=== PATIENT | male | born 1955 | race Caucasian/White ===

== ENCOUNTER → 2019-05-02 08:32 | Outpatient (BNVA) | payer MEDICARE, MEDICAID, SELFPAY | PROVIDERS: Family Provider Internal Medicine; PCP Internal Medicine; Visit Provider Internal Medicine | DX: E10.8 Type 1 diabetes mellitus with unspecified complications (principal) | CPT/HCPCS: 82947 ==

== ENCOUNTER → 2019-05-16 14:03 | Outpatient (BNVA) | payer MEDICARE, MEDICAID, SELFPAY | PROVIDERS: Family Provider Internal Medicine; PCP Internal Medicine; Visit Provider Internal Medicine | DX: E10.8 Type 1 diabetes mellitus with unspecified complications (principal) | CPT/HCPCS: 84681 ==

== ENCOUNTER 2019-07-08 10:51 | Outpatient (CLI) | payer MEDICARE, MEDICAID, SELFPAY ==
--- NOTE | 2019-07-08 10:56 | USCV_ITS ---
Heath Haney Age: 63 Gender: M : 1955 Exam Date: 07/08/2019 11:14 Ordering Phys: Ashley Mackay MD ([email or web address]) Technologist: ALINA BRANDT Exam Location: [facility] [place] Indication: CHECK LV FUNCTION BP: / HR: 77 Rhythm: Sinus Technical Quality: Good MEASUREMENTS (Male / Female) Normal Values 2D ECHO LV Diastolic Diameter PLAX 4.4 cm 4.2 - 5.9 / 3.9 - 5.3 cm LV Systolic Diameter PLAX 3.2 cm IVS Diastolic Thickness 1.1 cm 0.6 - 1.0 / 0.6 - 0.9 cm IVS Systolic Thickness 1.2 cm LVPW Diastolic Thickness 0.9 cm 0.6 - 1.0 / 0.6 - 0.9 cm LVPW Systolic Thickness 1.6 cm LVOT Diameter 2.0 cm LV Ejection Fraction 2D Teich 53.0 % LV Ejection Fraction MOD 2C 47.7 % LV Ejection Fraction 2C AL 49.0 % LA Diameter 2.0 cm LA Width 2.3 cm LA Height 2.7 cm RA Width 2.8 cm RA Height 2.7 cm M-MODE LV Diastolic Diameter MM 5.1 cm 4.2 - 5.9 / 3.9 - 5.3 cm LV Systolic Diameter MM 3.8 cm LV Ejection Fraction MM Teich 51.3 % IVS Diastolic Thickness MM 0.8 cm 0.6 - 1.0 / 0.6 - 0.9 cm IVS Systolic Thickness MM 0.9 cm LVPW Diastolic Thickness MM 1.0 cm 0.6 - 1.0 / 0.6 - 0.9 cm LVPW Systolic Thickness MM 1.6 cm Aortic Annulus Diameter 3.1 cm LA Ao Ratio MM 0.7 MV E Point Septal Separation 0.7 cm FINDINGS Left Ventricle Normal left ventricular cavity size. Increased left ventricular wall thickness. Low normal left ventricular systolic function. Left ventricular ejection fraction is estimated at 52 %. No regional wall motion abnormality. Right Ventricle Normal right ventricular size and systolic function. Right Atrium Normal right atrial size. Right atrial pressure estimated at 3 mmHg. Left Atrium Normal left atrial size. Mitral Valve Mildly thickened mitral valve. No mitral valve stenosis. Trace mitral valve regurgitation. Aortic Valve Mildly thickened trileaflet aortic valve. No aortic valve stenosis. No aortic valve regurgitation. Tricuspid Valve Structurally normal tricuspid valve. Mild tricuspid valve regurgitation. Pulmonic Valve Structurally normal pulmonic valve. No pulmonary valve stenosis. Trace pulmonary valve regurgitation. Pericardium No pericardial effusion. Aorta Normal-sized aortic root. CONCLUSIONS 1. Normal left ventricular cavity size. Low normal left ventricular systolic function. Left ventricular ejection fraction is estimated at 52 %. No regional wall motion abnormality. 2. Normal right ventricular size and systolic function. 3. Mild tricuspid valve regurgitation. 4. When compared to previous echocardiogram dated 03/31/2018, left ventricle systolic function has improved. Ashley Mackay MD (Electronically Signed) Final Date: 09 Jul 2019 17:02 S
== END 2019-07-08 10:52 | disposition home or self-care (01) ==
PROVIDERS: PCP Internal Medicine; Visit Provider Internal Medicine Cardiovascular Disease
DX: I42.8 Other cardiomyopathies (principal); I07.1 Rheumatic tricuspid insufficiency
CPT/HCPCS: 93308

== ENCOUNTER → 2019-07-25 08:58 | Outpatient (BNVA) | payer MEDICARE, MEDICAID, SELFPAY | PROVIDERS: PCP Internal Medicine | DX: Z94.0 Kidney transplant status (principal); Z94.83 Pancreas transplant status; Z79.899 Other long term (current) drug therapy; E78.5 Hyperlipidemia, unspecified; E10.8 Type 1 diabetes mellitus with unspecified complications; I10 Essential (primary) hypertension | CPT/HCPCS: 80053; 80061; 81003; 82306; 82310; 82570; 83036; 83735; 83970; 84100; 84156; 85025 ==

== ENCOUNTER → 2019-10-25 08:55 | Outpatient (BNVA) | payer MEDICARE, MEDICAID, SELFPAY | PROVIDERS: PCP Internal Medicine; Visit Provider Nurse Practitioner | DX: I10 Essential (primary) hypertension (principal); E78.5 Hyperlipidemia, unspecified; E10.8 Type 1 diabetes mellitus with unspecified complications; Z79.899 Other long term (current) drug therapy; Z94.0 Kidney transplant status; Z94.83 Pancreas transplant status | CPT/HCPCS: 81000; 82570; 84156; 87496; 87799 ==

== ENCOUNTER → 2019-10-26 08:36 | Outpatient (BNVA) | payer MEDICARE, MEDICAID, SELFPAY | PROVIDERS: PCP Internal Medicine; Visit Provider Nurse Practitioner | DX: E78.5 Hyperlipidemia, unspecified (principal); E10.8 Type 1 diabetes mellitus with unspecified complications; I10 Essential (primary) hypertension; Z79.899 Other long term (current) drug therapy; Z94.0 Kidney transplant status; Z94.83 Pancreas transplant status | CPT/HCPCS: 80053; 80195; 83735; 84100; 85025 ==

== ENCOUNTER → 2020-01-31 09:23 | Outpatient (BNVA) | payer MEDICARE, MEDICAID, SELFPAY | PROVIDERS: PCP Internal Medicine | DX: E11.9 Type 2 diabetes mellitus without complications (principal); E78.5 Hyperlipidemia, unspecified; I10 Essential (primary) hypertension; Z94.0 Kidney transplant status; Z79.899 Other long term (current) drug therapy | CPT/HCPCS: 80053; 80195; 81000; 82570; 83735; 84100; 84156; 85025; 87496; 87799 ==

== ENCOUNTER 2020-02-20 14:00 | Outpatient (CLI) | payer MEDICARE, MEDICAID, SELFPAY ==
--- NOTE | 2020-02-20 14:03 | XR_ITS ---
WS: [id number] Exam: XR hip LT 2-3V wo/w pel* [id number] Date/Time of Exam: 02/20/2020 2:03 PM Reason For Exam: M25.552 - Pain in left hip No acute fracture or dislocation. Moderately advanced degenerative narrowing of the joint compartment . Normal soft tissues. Vascular calcifications in the upper medial thigh. XR/XR hip LT 2-3V wo/w pel* [id number] IMPRESSION: 1. Moderately advanced DJD. No fracture or dislocation.
== END 2020-02-20 14:01 | disposition home or self-care (01) ==
PROVIDERS: PCP Internal Medicine; Visit Provider Internal Medicine
DX: M16.12 Unilateral primary osteoarthritis, left hip (principal)
CPT/HCPCS: 73502

== ENCOUNTER → 2020-03-16 08:29 | Outpatient (BNVA) | payer MEDICARE, MEDICAID, SELFPAY | PROVIDERS: PCP Internal Medicine; Referring Provider Internal Medicine; Visit Provider Anesthesiology Pain Medicine | DX: M16.12 Unilateral primary osteoarthritis, left hip (principal); M54.16 Radiculopathy, lumbar region; M47.816 Spondylosis without myelopathy or radiculopathy, lumbar region; M54.9 Dorsalgia, unspecified | CPT/HCPCS: 72120; 99205 ==

== ENCOUNTER 2020-03-16 10:00 | Outpatient (CLI) | payer MEDICARE, MEDICAID, SELFPAY ==
--- NOTE | 2020-03-16 10:15 | XR_ITS ---
WS: [id number] LUMBAR SPINE FLEXION AND EXTENSION TECHNIQUE: 3 views of the lumbar spine: Lateral neutral, flexion, and extension views. CLINICAL INFORMATION: M47.816 - Spondylosis without myelopathy or radiculopathy, lumbar region COMPARISON: None. FINDINGS: Normal lumbar alignment on the neutral view. No instability on the flexion and extension views. Disc space narrowing worse at L1-2. Moderate facet arthropathy L5-S1. Aortic calcification. Shaniqua arevalo XR/XR lumbar spine f/e only [id number] IMPRESSION: 1. No instability on flexion-extension. 2. Disc space narrowing worse at L1-2.
== END 2020-03-16 10:01 | disposition home or self-care (01) ==
LOC: RADWPI 10:05
PROVIDERS: PCP Internal Medicine; Visit Provider Anesthesiology Pain Medicine
DX: M47.816 Spondylosis without myelopathy or radiculopathy, lumbar region (principal)
CPT/HCPCS: 72120

== ENCOUNTER 2020-04-05 12:31 | Outpatient (CLI) | payer MEDICARE, MEDICAID, SELFPAY ==
--- NOTE | 2020-04-05 12:35 | CT_ITS ---
WS: [id number] CT LUMBAR SPINE, noncontrast. HISTORY: M54.16 - Radiculopathy, lumbar region TECHNIQUE: Contiguous 2.5 mm axial imaging are performed. Sagittal and coronal reformats are submitte d and reviewed. All CT scans at [facility] use at least one of these dose optimization te chniques: automated exposure control; mA and/or kV adjustment per patient size (includes targeted exa ms where dose is matched to clinical indication); or iterative reconstruction. IV contrast: None DLP: 2000.38 mGycm COMPARISON: None available. Posterior lumbar alignment is normal. Severe narrowing of the disc space at L1-2 with sclerosis and e rosions along the adjacent endplates of L1-2. No fractures. No pars defects. Moderate atherosclerosis aorta. L1-2: Mild annular disc bulging and osteophytic ridging. No fractures. Mild bilateral foraminal narro wing. L2-3: Marked annular disc bulging and mild osteophytic ridging. Mild deformity of the ventral thecal sac. There is very mild narrowing of the subarticular recesses and foramen. L3-4: Moderate annular disc bulging and osteophytic ridging. Mild facet and ligamentum flavum arthrit is. Very mild central and foraminal narrowing. L4-5: Moderate annular disc bulging and mild osteophytic ridging. Mild ligamentum flavum disease and facet arthritis. Slightly greater facet arthritis on the LEFT. Mild central stenosis. Moderate LEFT f oraminal stenosis with an associated LEFT foraminal disc protrusion and facet arthritis. LEFT foramin al disc protrusion is contacting the L4 nerve root. L5-S1: Mild broad-based disc bulging without stenosis. Moderate facet joint arthritis. Calcified plaque extends into the proximal renal arteries bilaterally . Severe bilateral renal atrophy. CT/CT lumbar spine wo con* [id number] IMPRESSION: 1. Moderate LEFT foraminal stenosis at L4-5. Stenosis due to combination of a LEFT foraminal disc protrusion with facet disease and ligamentum flavum disease . 2. Mild central stenosis at L4-5. 3. Mild central and foraminal narrowing at L3-4. 4. Severe degenerative disc disease and chronic endplate degeneration at L1-2. 5. Severe atherosclerosis aorta and iliac arteries.
== END 2020-04-05 12:32 | disposition home or self-care (01) ==
LOC: RADWPI 12:34
PROVIDERS: PCP Internal Medicine; Visit Provider Nurse Practitioner
DX: M54.16 Radiculopathy, lumbar region (principal); I70.0 Atherosclerosis of aorta; M51.36 Other intervertebral disc degeneration, lumbar region; M48.061 Spinal stenosis, lumbar region without neurogenic claudication; M51.26 Other intervertebral disc displacement, lumbar region
CPT/HCPCS: 72131

== ENCOUNTER → 2020-04-30 08:38 | Outpatient (BNVA) | payer MEDICARE, MEDICAID, SELFPAY | PROVIDERS: PCP Internal Medicine | DX: E10.8 Type 1 diabetes mellitus with unspecified complications (principal); E78.5 Hyperlipidemia, unspecified; I10 Essential (primary) hypertension; Z94.83 Pancreas transplant status; Z94.0 Kidney transplant status | CPT/HCPCS: 80053; 80195; 81000; 82570; 83735; 84100; 84156; 85025; 87496; 87799 ==

== ENCOUNTER → 2020-05-22 09:25 | Outpatient (BNVA) | payer MEDICARE, MEDICAID, SELFPAY | PROVIDERS: PCP Internal Medicine; Referring Provider Internal Medicine; Visit Provider Orthopaedic Surgery | DX: M25.552 Pain in left hip (principal) | CPT/HCPCS: 73502 ==

== ENCOUNTER → 2020-07-18 08:53 | Outpatient (BNVA) | payer MEDICARE, MEDICAID, SELFPAY | PROVIDERS: PCP Internal Medicine | DX: E78.5 Hyperlipidemia, unspecified (principal); I10 Essential (primary) hypertension; E10.8 Type 1 diabetes mellitus with unspecified complications; Z79.899 Other long term (current) drug therapy; Z94.0 Kidney transplant status | CPT/HCPCS: 80053; 80061; 80195; 81000; 82306; 82310; 82570; 83036; 83735; 83970; 84100; 84156; 85025; 87496; 87799 ==

== ENCOUNTER → 2020-08-06 09:50 | Outpatient (BNVA) | payer MEDICARE, MEDICAID, SELFPAY | PROVIDERS: PCP Internal Medicine | DX: Z94.0 Kidney transplant status (principal); Z94.83 Pancreas transplant status | CPT/HCPCS: 80195 ==

== ENCOUNTER → 2020-08-16 11:55 | Outpatient (BNVA) | payer MEDICARE, MEDICAID, SELFPAY | PROVIDERS: PCP Internal Medicine; Visit Provider Nurse Practitioner Family | DX: R50.9 Fever, unspecified (principal); Z11.52 Encounter for screening for COVID-19; T14.8XXA Other injury of unspecified body region, initial encounter; L08.9 Local infection of the skin and subcutaneous tissue, unspecified | CPT/HCPCS: 85007; 85025; 87635 ==

== ENCOUNTER → 2020-09-11 09:16 | Outpatient (BNVA) | payer MEDICARE, MEDICAID, SELFPAY | PROVIDERS: PCP Internal Medicine; Visit Provider Nurse Practitioner | DX: Z79.899 Other long term (current) drug therapy (principal); Z94.0 Kidney transplant status | CPT/HCPCS: 80195 ==

== ENCOUNTER 2020-09-24 12:52 | Outpatient (CLI) | payer MEDICARE, MEDICAID, SELFPAY ==
--- NOTE | 2020-09-24 13:04 | XR_ITS ---
WS: [id number] Chest 2 views, 09/24/2020 Clinical Data: W19.XXXA - Unspecified fall, initial encounter Comparison: Portable chest, 01/29/2016. Findings: No nodules, masses or effusions are seen. The heart is normal. The pulmonary vascularity is not increased. No pneumonia or pneumothorax is seen. The diaphragms are flattened. The aortic arch a nd descending aorta show tortuosity. There is deformity of the left upper ribs in the lateral border left scapula from old trauma. XR/XR chest 2V* [id number] Impression: Atherosclerosis and hyperinflation.
== END 2020-09-24 12:53 | disposition home or self-care (01) ==
PROVIDERS: PCP Internal Medicine; Visit Provider Internal Medicine
DX: I70.0 Atherosclerosis of aorta (principal); W19.XXXA Unspecified fall, initial encounter
CPT/HCPCS: 71046

== ENCOUNTER → 2021-02-04 09:54 | Outpatient (BNVA) | payer MEDICARE, MEDICAID, SELFPAY | PROVIDERS: PCP Internal Medicine | DX: E10.8 Type 1 diabetes mellitus with unspecified complications (principal); E78.5 Hyperlipidemia, unspecified; I10 Essential (primary) hypertension; Z94.0 Kidney transplant status; Z94.83 Pancreas transplant status; Z79.899 Other long term (current) drug therapy | CPT/HCPCS: 81000; 82570; 84156; 87799 ==

== ENCOUNTER → 2021-02-06 09:40 | Outpatient (BNVA) | payer MEDICARE, MEDICAID, SELFPAY | PROVIDERS: PCP Internal Medicine | DX: E10.8 Type 1 diabetes mellitus with unspecified complications (principal); E78.5 Hyperlipidemia, unspecified; I10 Essential (primary) hypertension; Z79.899 Other long term (current) drug therapy; Z94.0 Kidney transplant status; Z94.83 Pancreas transplant status | CPT/HCPCS: 80048; 80195; 83735; 84100; 85025; 87496 ==

== ENCOUNTER → 2021-07-11 10:52 | Outpatient (BNVA) | payer MEDICARE, MEDICAID, SELFPAY | PROVIDERS: PCP Internal Medicine; Visit Provider Internal Medicine Cardiovascular Disease | DX: I42.8 Other cardiomyopathies (principal); I73.9 Peripheral vascular disease, unspecified; I25.10 Atherosclerotic heart disease of native coronary artery without angina pectoris; I10 Essential (primary) hypertension; E10.8 Type 1 diabetes mellitus with unspecified complications; Z79.4 Long term (current) use of insulin | CPT/HCPCS: 99214 ==

== ENCOUNTER → 2021-07-25 08:40 | Outpatient (BNVA) | payer MEDICARE, MEDICAID, SELFPAY | PROVIDERS: PCP Internal Medicine | DX: E10.8 Type 1 diabetes mellitus with unspecified complications (principal); E78.5 Hyperlipidemia, unspecified; Z79.899 Other long term (current) drug therapy; Z94.83 Pancreas transplant status; Z94.0 Kidney transplant status | CPT/HCPCS: 80053; 80061; 80195; 81000; 82306; 82310; 82570; 83036; 83735; 83970; 84100; 84156; 85025; 87496; 87799 ==

== ENCOUNTER 2021-11-14 07:48 | Outpatient (CLI) | payer MEDICARE, MEDICAID, SELFPAY ==
--- NOTE | 2021-11-14 08:00 | MR_ITS ---
WS: [id number] MRI LUMBAR SPINE NONCONTRAST HISTORY: Chronic low back pain radiating to LEFT leg. COMPARISON: CT 04/05/2020 TECHNIQUE: Sagittal and axial multisequence imaging is submitted. Degenerative disc disease and disc protrusions and facet arthritis throughout the cervical, thoracic and lumbar spine. Cervical stenosis at C3-4 and C4-5. C6 anterolisthesis by 5 mm. Slight increase in lumbar lordosis. No significant anterolisthesis of the vertebral bodies. Chronic e ndplate changes with disc space narrowing and disc desiccation throughout the lumbar spine. Most sign ificant disc space narrowing is at L1-2. Hemangioma at L4. No fracture. Conus terminates normally at L1-2 disc level. L1-L2: Slight retrolisthesis of L1 with annular disc bulging and osteophytic ridging. Osteophytes enc hedrick into the subarticular recesses. Mild asymmetric disc bulging to the RIGHT. Mild bilateral subar ticular recess and RIGHT foraminal stenosis. L2-L3: Diffuse annular disc bulging. Diffuse osteophytic ridging. More focal bilateral foraminal disc protrusions with annular fissure in the LEFT protrusion. Mild central, bilateral subarticular recess and foraminal stenosis. L3-L4: Diffuse annular disc bulge with moderate ligamentum flavum and facet arthritis. LEFT foraminal disc protrusion with contact on the exiting LEFT L3 nerve root. Mild central stenosis. Moderate LEFT foraminal stenosis. L4-L5: Diffuse annular disc bulging and osteophytic ridging. Moderate ligamentum flavum hypertrophy a nd facet arthritis. Mild central and LEFT foraminal stenosis. There is very slight disc contact on th e exiting LEFT L4 nerve root. L5-S1: Mild disc bulging without stenosis. Marked atrophy of the kidneys bilaterally. MR/MR lumbar spine wo con* [id number] IMPRESSION: 1. Moderate spondylitic changes throughout the lumbar spine. 2. Moderate LEFT foraminal stenosis at L3-4 and L4-5 with disc contacting the exiting L3 and L4 nerve roots, respectively. 3. Mild central stenosis at L3-4 and L4-5. 4. Mild bilateral subarticular recess and RIGHT foraminal stenosis at L1-2. 5. Mild central, bilateral subarticular recess and foraminal stenosis at L2-3. 6. Severe chronic renal atrophy.
== END 2021-11-14 07:49 | disposition home or self-care (01) ==
PROVIDERS: PCP Internal Medicine; Visit Provider Internal Medicine
DX: M54.16 Radiculopathy, lumbar region (principal); M48.061 Spinal stenosis, lumbar region without neurogenic claudication; N26.1 Atrophy of kidney (terminal)
CPT/HCPCS: 72148

== ENCOUNTER → 2022-01-20 15:05 | Outpatient (BNVA) | payer MEDICARE, MEDICAID, SELFPAY | PROVIDERS: PCP Internal Medicine; Visit Provider Internal Medicine Cardiovascular Disease | DX: I42.8 Other cardiomyopathies (principal); I10 Essential (primary) hypertension; I73.9 Peripheral vascular disease, unspecified; I25.10 Atherosclerotic heart disease of native coronary artery without angina pectoris; E10.8 Type 1 diabetes mellitus with unspecified complications; Z79.4 Long term (current) use of insulin | CPT/HCPCS: 99214 ==

== ENCOUNTER 2022-02-21 09:24 | Observation (INO) | payer MEDICARE, MEDICAID, SELFPAY ==
[2022-02-21] VITALS (55 sets, daily range): BP systolic 97–130; BP diastolic 59–90; PULSE 78–148; RESP 14–39; TEMP 36.7–39.4; O2SAT 91–98; BMI 26.4; BMI 19.6
--- NOTE | 2022-02-21 09:25 | XR_ITS ---
WS: [id number] Portable AP upright chest, 02/21/2022 Clinical Data: dyspnea/cough Comparison: PA and lateral chest, 09/24/2020 Findings: There are bilateral patchy opacities distributed throughout the lungs which may represent p ulmonary edema. The heart is enlarged. No nodules, masses or effusions are seen. The heart is enlarge d No pneumothorax is seen. The aortic arch and descending thoracic aorta show tortuosity. There are m onitor leads on the chest wall. There is left upper rib deformity and deformity of the lateral left s capula from an old injury. XR/XR chest 1V portable [id number] Impression: 1. Bilateral diffuse patchy opacities and cardiomegaly suggestive of pulmonary edema. 2. Atherosclerosis
[2022-02-21 09:35] LABS: ABG PCO2 30.4 mmHg (35-45); ABG PH Result 7.45 (7.35-7.45); Alveolar-Arterial Oxygen Gradi 20.3 mmHg (5-10); Arterial Blood Gas Hematocrit 36.3 % (42-52); Base Excess ABG -2.3 mmol/L (-2.0-2.0); Blood Gas Allen Test Pos; Blood Gas Operator Identificat CAK; Blood Gas Sample Site Radial, left; Blood Gas Sample Type Arterial; Carboxyhemoglobin 1.4 %THgb (0.4-20.1); HCO3 ABG 20.9 mmol/L (22-26); HGB O2 Sat 91.3 % (95-100); Ionized Calcium Level - ABG 1.1 mmol/L (1.1-1.4); Methemoglobin 0.7 % (0.4-1.5); Oxygen Device NC; Oxygen Saturation ABG 93.3; PO2 ABG 61.8 mmHg (80.0-100.0); Potassium Level - ABG 4.4 mmol/L (3.5-5.0); Total Hemoglobin 11.8 g/dL (14-18)
[2022-02-21 09:35] LABS: Glucose Point of Care 286 mg/dL (70-110)
--- NOTE | 2022-02-21 09:39 | ECG_ITS ---
[facility] Test Date: 2022-02-21 Pat Name: Heath Haney Department: Room: Gender: Male Account Development Manager: : 1955 Requested By: Wallace Silvestre Order Number: [id number] Marisel MD: Ashley Mackay M.D. Measurements Intervals [place] Rate: 137 P: 52 KS: 161 QRS: -32 QRSD: 114 T: 64 QT: 363 QTc: 549 Interpretive Statements SINUS TACHYCARDIA LEFT AXIS DEVIATION [QRS AXIS < -30] SEPTAL MYOCARDIAL INFARCTION , OF INDETERMINATE AGE Compared to ECG 01/28/2016 10:26:06 Left-axis deviation now present Myocardial infarct finding still present Electronically Signed On 02-21-2022 20:34:31 PROCESSING CLERK by Ashley Mackay M.D. [email or web address]
[2022-02-21 09:42] LABS: Basophils # 0.1 10^3/uL (0.0-0.1); Basophils % 0.4 %; Hematocrit 39.1 % (42.0-52.0); Hemoglobin 12.3 g/dL (11.7-16.6); Lymphocytes # 0.3 10^3/uL (0.8-4.8); Lymphocytes % 2.1 %; Mean Corpuscular HGB Conc 31.5 g/dL (30.0-36.0); Mean Corpuscular Hemoglobin 28.1 pg (28.0-34.0); Mean Corpuscular Volume 89.3 fl (80-94); Mean Platelet Volume 10.5 fL (7.4-10.4); Monocytes # 0.8 10^3/uL (0.2-0.9); Monocytes % 5.2 %; Neutrophils # 14.48 10^3/uL (1.8-7.7); Neutrophils % 91.5 %; Nucleated Red Blood Cells % 0 %; Platelet Count 195 10^3/cmm (130-400); Red Blood Count 4.38 10^6/uL (4.1-5.3); Red Cell Distribution Width 13.4 % (12.1-15.1); White Blood Count 15.8 10^3/uL (4.0-10.0)
[2022-02-21] MEDS: piperacillin-tazobactam 3.375 GM in sodium chloride 0.9% (plus) 50 ML IV (09:52)
[2022-02-21] MEDS: levofloxacin-dextrose 5 % 750 MG/150 ML PREMIX 100 MG IV (09:54)
[2022-02-21 09:58] LABS: Lactic Sepsis W/Reflex 3.8 mmol/L (0.5-2.2)
[2022-02-21 09:59] LABS: Alanine Aminotransferase 22 U/L (0-41); Albumin Level 3.3 g/dL (3.5-5.2); Alkaline Phosphatase 100 U/L (40-130); Anion Gap 20.1 (5-19); Aspartate Amino Transferase 57 U/L (0-40); Blood Urea Nitrogen 46 mg/dL (8-23); Calcium 8.2 mg/dL (8.5-10.5); Carbon Dioxide 22 mmol/L (22-29); Chloride 100 mmol/L (98-107); Globulin 2.4 g/dL (1.3-4.6); Glomerular Filtration Rate 35.5 mL/min (90-130); Glucose 279 mg/dL (65-115); Lipase 6 U/L (13-60); Magnesium 1.7 mg/dL (1.7-2.3); Osmolality Calculated 306 mOsm/kg (285-295); Potassium 5.1 mmol/L (3.5-5.1); Sodium 137 mmol/L (136-145); Total Bilirubin 0.5 mg/dL (0.15-1.2); Total Protein 5.7 g/dL (6.6-8.7)
[2022-02-21 10:05] LABS: Creatine Phosphokinase 748 U/L (39-308)
[2022-02-21 10:06] LABS: Troponin(5th) Baseline 388 ng/L (0-15)
--- NOTE | 2022-02-21 10:06 | W.ED.CHESTPA ---
HPI - Chest Pain General: Chief Complaint: Chest Pain Stated Complaint: SOB/ CHEST PAIN Time Seen by Provider: 02/21/22 09:25 Source: patient Mode of arrival: EMS History of Present Illness: 66-year-old male presents emergency room via EMS. EMS was called because of shortness of breath with chest pain and rapid heart rate for the last 2 days worsening overnight. On EMSs arrival he was tachycardic in the 150s IV was placed he was given fluids and then given 6 mg and 12 mg of adenosine while in route. He had a slight pause but his rate remained in the 150s he was then given ketamine and cardioverted his heart rate remained in the 130s after this. On arrival here he is obtunded due to the ketamine but maintaining his airway usually does not use oxygen now requiring 4 L by nasal cannula. 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 Previous history of pancreas and kidney transplant. MD complaint: chest pain Pertinent past history: coronary artery disease Onset (ago): day(s) (2) Timing of current episode: constant Onset: during rest Pain location: left chest Relieving factors: nothing Exacerbating factors: nothing Associated symptoms: Deny abdominal pain, diaphoresis, dyspnea, fever(s), leg edema, nausea, palpitations, sense of impending doom, syncope or vomiting Treatment prior to arrival: none Review of Systems Const: Denies: fever(s), chills, fatigue, malaise or diaphoresis ENMT: Denies: throat pain, ear or mastoid pain, nasal discharge or nasal congestion Card: Reports: chest pain; Denies: palpitations, irregular heart rhythm, edema or syncope Resp: Denies: dyspnea GI: Denies: abdominal pain, nausea or vomiting : Denies: flank pain, dysuria, urinary frequency or urinary urgency Skin/Breast: Denies: rash or pruritus PFSH ED PFSH: Medical History (Updated 02/21/22 @ 13:02 by Wallace Hackett DO) Amputation toe Chronic pain syndrome Essential hypertension H/O lymph node cancer T-CELL Mild CAD Neuropathy NICM (nonischemic cardiomyopathy) Osteoporosis PVD (peripheral vascular disease) Type 1 diabetes mellitus with unspecified complications Surgical History (Updated 02/21/22 @ 13:02 by Wallace Hackett DO) H/O arterial bypass of lower limb H/O kidney transplant H/O pancreas transplant History of esophagogastroduodenoscopy (EGD) 05/29/2017 Hx of BKA Family History Other Heart disease Social History Smoking and tobacco status: never smoked Alcohol intake: current Alcohol intake frequency: holidays/special occasions only Household members: none Marital status: Single History of recent travel: No Physical Exam HENMT: COMMON NORMALS: normocephalic and atraumatic HEAD & SCALP: normocephalic and atraumatic Resp: COMMON NORMALS: normal respiratory effort, No retractions and No use of accessory muscles AUSCULTATION: rhonchi and wheezes Cardio: COMMON NORMALS: regular rhythm and No murmurs present (Cardio) RATE: tachycardic RHYTHM: regular rhythm GI: COMMON NORMALS: Soft to palpation and No hepatosplenomegaly present AUSCULTATION: Yes normoactive bowel sounds PALPATION: Yes Soft to palpation, No Tenderness to palpation present (GI), No Guarding due to palpation present (GI) and Yes No hepatosplenomegaly present Extremity: COMMON NORMALS: normal to inspection, capillary refill normal, no clubbing, cyanosis or edema, no calf tenderness and no pedal edema Skin: COMMON NORMALS: no rashes or lesions noted GENERAL SKIN EXAM: no rashes or lesions noted Course Vital Signs: Vital signs: Vital Signs Temperature 101.2 F H 02/21/22 09:27 Pulse Rate 129 H 02/21/22 11:45 Respiratory Rate 21 H 02/21/22 11:45 Blood Pressure 103/70 02/21/22 11:45 Pulse Oximetry 94 02/21/22 11:45 Oxygen Delivery Me thod 02/21/22 10:18 Oxygen Flow Rate 4 02/21/22 10:18 MDM - Chest Pain Medical Decision Making Bilateral basilar pneumonia. Patient is stabilizing he has slow to clear the ketamine so still is difficulty answering questions. Family at the bedside state has been sick for last few days progressively worsening and more shortness of breath. Discussed with hospitalist will admit have started Levaquin and Zosyn. Continue IV fluids for mild acute kidney injury. Nephrology consulted. Medical Records I reviewed the patient's medical records. Lab Data I reviewed the patient's lab results. 02/21/22 09:30 02/21/22 09:30 Radiology Impressions Chest X-Ray 02/21/22:25 Impression: 1. Bilateral diffuse patchy opacities and cardiomegaly suggestive of pulmonary edema. 2. Atherosclerosis Laboratory Results WBC 15.8 10^3/uL (4.0-10.0) H 02/21/22 09:30 RBC 4.38 10^6/uL (4.1-5.3) 02/21/22 09:30 Hgb 12.3 g/dL (11.7-16.6) 02/21/22 09:30 Hct 39.1 % (42.0-52.0) L 02/21/22 09:30 MCV 89.3 fl (80-94) 02/21/22 09:30 MCH 28.1 pg (28.0-34.0) 02/21/22:30 MCHC 31.5 g/dL (30.0-36.0) 02/21/22 09:30 RDW 13.4 % (12.1-15.1) 02/21/22 09:30 Plt Count 195 10^3/cmm (130-400) 02/21/22 09:30 MPV 10.5 fL (7.4-10.4) H 02/21/22 09:30 Neut % (Auto) 91.5 % 02/21/22 09:30 Lymph % (Auto) 2.1 % 02/21/22 09:30 [place] % (Auto) 5.2 % 02/21/22 09:30 Eos % (Auto) 0.0 % 02/21/22 09:30 Baso % (Auto) 0.4 % 02/21/22 09:30 Neut # (Auto) 14.48 10^3/uL (1.8-7.7) H 02/21/22 09:30 Lymph # (Auto) 0.3 10^3/uL (0.8-4.8) L 02/21/22 09:30 [place] # (Auto) 0.8 10^3/uL (0.2-0.9) 02/21/22 09:30 Eos # (Auto) 0.0 10^3/uL (0.0-0.8) 02/21/22 09:30 Baso # (Auto) 0.1 10^3/uL (0.0-0.1) 02/21/22 09:30 Nucleated RBC % (auto) 0 % 02/21/22 09:30 Nucleated RBCs # 0.0 /100WBC 02/21/22 09:30 Specimen Type Arterial 02/21/22 09:24 Sample Site Radial, left 02/21/22 09:24 ABG pH 7.45 (7.35-7.45) 02/21/22 09:24 ABG pCO2 30.4 mmHg (35-45) L 02/21/22 09:24 ABG pO2 61.8 mmHg (80.0-100.0) L 02/21/22 09:24 ABG HCO3 20.9 mmol/L (22-26) L 02/21/22 09:24 ABG O2 Saturation 93.3 02/21/22 09:24 ABG Base Excess -2.3 mmol/L (-2.0-2.0) L 02/21/22 09:24 Petey Test Pos 02/21/22 09:24 A-a O2 Gradient 20.3 mmHg (5-10) H 02/21/22 09:24 Hematocrit 36.3 % (42-52) L 02/21/22 09:24 Hgb O2 Saturation 91.3 % (95-100) L 02/21/22 09:24 Carboxyhemoglobin 1.4 %THgb (0.4-20.1) 02/21/22 09:24 Methemoglobin 0.7 % (0.4-1.5) 02/21/22 09:24 Total Hemoglobin 11.8 g/dL (14-18) L 02/21/22 09:24 Sodium 137.0 mmol/L (131-143) 02/21/22 09:24 Potassium 4.4 mmol/L (3.5-5.0) 02/21/22 09:24 Glucose 284.0 mg/dL (70-115) H 02/21/22 09:24 Ionized Calcium 1.1 mmol/L (1.1-1.4) 02/21/22 09:24 O2 Delivery Device Nc 02/21/22 09:24 O2 Liters/Min 4.0 % 12/30/22 09:24 FiO2 36.0 % 02/21/22 09:24 Floor Installation Mechanic ID Cak 02/21/22 09:24 Sodium 137 mmol/L (136-145) 02/21/22 09:30 Potassium 5.1 mmol/L (3.5-5.1) 02/21/22 09:30 Chloride 100 mmol/L (98-107) 02/21/22 09:30 Carbon Dioxide 22 mmol/L (22-29) 02/21/22 09:30 Anion Gap 20.1 (5-19) H 02/21/22 09:30 BUN 46 mg/dL (8-23) H 02/21/22 09:30 Creatinine 1.9 mg/dL (0.7-1.2) H 02/21/22 09:30 GFR Calculation 35.5 mL/min (90-130) L 02/21/22 09:30 Glucose 279 mg/dL (65-115) H 02/21/22 09:30 POC Glucose 286 mg/dL (70-110) H 02/21/22 09:32 Calculated Osmolality 306 mOsm/kg (285-295) H 02/21/22 09:30 Lactic Acid 3.8 mmol/L (0.5-2.2) H 02/21/22 09:30 Calcium 8.2 mg/dL (8.5-10.5) L 02/21/22 09:30 Magnesium 1.7 mg/dL (1.7-2.3) 02/21/22 09:30 Total Bilirubin 0.5 mg/dL (0.15-1.2) 02/21/22 09:30 AST 57 U/L (0-40) H 02/21/22 09:30 ALT 22 U/L (0-41) 02/21/22 09:30 Alkaline Phosphatase 100 U/L (40-130) 02/21/22 09:30 Creatine Kinase 748 U/L (39-308) H* 02/21/22 09:30 CK-MB (CK-2) 14.0 ng/mL (0-10.4) H 02/21/22 09:30 CK-MB (CK-2) Rel Index 1.8 % (0.0-5.3) 02/21/22 09:30 Troponin T Baseline 388 ng/L (0-15) H* 02/21/22 09:30 Total Protein 5.7 g/dL (6.6-8.7) L 02/21/22 09:30 Albumin 3.3 g/dL (3.5-5.2) L 02/21/22 09:30 Globulin 2.4 g/dL (1.3-4.6) 02/21/22 09:30 Lipase 6 U/L (13-60) L 02/21/22 09:30 Influenza Type A Ag negative (Negative) 02/21/22 10:20 Influenza Type B Ag negative (Negative) 02/21/22 10:20 Discharge Plan Discharge Patient Disposition: Admitted As Inpatient Admit Provider: Jazmin Hodges Clinical Impression: Pneumonia, Acute kidney injury, Renal transplant, status post, Status post pancreas transplantation Condition: Stable Coding Level of Care Code ED Grounds Restoration Specialist for g Fwd Exam Detailed
--- NOTE | 2022-02-21 10:07 | PC.NURSE ---
NOTIFIED DR. SORENSON OF [place] OF 388 AND CK OF 748 VERBALIZED UNDERSTANDING NO FURTHER ORDERS.
[2022-02-21 10:50] LABS: Influenza A by IFA negative (Negative); Influenza B by IFA negative (Negative)
[2022-02-21 10:52] LABS: CKMB Relative Index 1.8 % (0.0-5.3)
[2022-02-21 11:21] LABS: Reflex Lactate Order REFLEX LACTIC ORDERD
--- NOTE | 2022-02-21 13:04 | PM.HP ---
Providers/Chief Complaint Admitting Physician: Jazmin Hodges MD Primary Care Provider: Atilio Mcgraw MD Chief Complaint: SOB/ CHEST PAIN History of Present Illness Heath Haney is a 66 year old male Medications/Allergies Home Medications Medication Instructions Recorded Confirmed Last Taken Type flash glucose sensor (FreeStyle #2 ea 04/28/19 02/21/22 Unknown Rx Girish 14 Day Sensor kit) Replace Liners #1 ea 05/13/19 02/21/22 Unknown Rx prostehetic insert for rt shoe #1 ea 09/06/19 02/21/22 Unknown Rx below knee prosthesis #1 ea 10/10/19 02/21/22 Unknown Rx cholecalciferol (vitamin D3) 50 50 mcg PO DAILY 05/22/20 02/21/22 Unknown History mcg (2,000 unit) capsule (Vitamin D3) albuterol sulfate 90 mcg/actuation 2 puff inhalation Q6H PRN 12/04/20 02/21/22 Unknown Rx aerosol inhaler (ProAir HFA) shortness of breath or wheezing #18 grams rollinator #1 ea 01/28/21 02/21/22 Unknown Rx insulin lispro 100 unit/mL See Rx Instructions .Route 02/07/21 02/21/22 Unknown Rx subcutaneous pen (Humalog KwikPen .COMPLEX #15 mL (U-100) Insulin) spironolactone 25 mg tablet 12.5 mg PO DAILY #45 tabs 04/26/21 02/21/22 Unknown Rx calcium carbonate 600 mg calcium 600 mg PO BID 07/11/21 02/21/22 Unknown History (1,500 mg) tablet (Calcium) coenzyme Q10 100 mg capsule (Co 100 mg PO DAILY 07/11/21 02/21/22 Unknown History Q-10) furosemide 20 mg tablet 10 mg PO DAILY PRN Edema 07/11/21 02/21/22 Unknown History prednisone 5 mg tablet 5 mg PO DAILY 07/11/21 02/21/22 Unknown History sirolimus 2 mg tablet (Rapamune) 4 mg PO DAILY 07/11/21 02/21/22 02/21/22 History diclofenac sodium 1 % topical gel See Rx Instructions .Route 08/13/21 02/21/22 Unknown Rx .COMPLEX #100 grams tadalafil 20 mg tablet (Cialis) 20 mg PO DAILY PRN sexual activity 09/23/21 02/21/22 Unknown Rx #30 tabs mupirocin 2 % topical ointment 1 applic topical DAILY #30 grams 10/23/21 02/21/22 Unknown Rx duloxetine 60 mg capsule,delayed 60 mg PO DAILY #90 caps 11/27/21 02/21/22 Unknown Rx release tizanidine 4 mg tablet 4 mg PO Q6H PRN muscle spasticity 12/31/21 02/21/22 Unknown Rx 30 days #30 tabs oxycodone 10 mg tablet 10 mg PO TID PRN pain 30 days #90 01/01/22 02/21/22 Unknown Rx tabs aspirin 81 mg tablet,delayed 81 mg PO .MWF 01/20/22 02/21/22 Unknown History release (Adult Low Dose Aspirin) diazepam 5 mg tablet 5 mg PO DAILY PRN Anxiety 01/20/22 02/21/22 Unknown History lidocaine 5 % topical patch 1 patch topical DAILY PRN Pain 01/20/22 02/21/22 Unknown History lisinopril 5 mg tablet 5 mg PO DAILY 01/20/22 02/21/22 Unknown History methylsulfonylmethane 1,000 mg 1,000 mg PO BID 01/20/22 02/21/22 Unknown History tablet (MSM) prenat.vits,walter,fbj-owgk-ldygr 1 tab PO DAILY 01/20/22 02/21/22 Unknown History Lactobacillus acidophilus and 1 cap PO DAILY 02/21/22 02/21/22 Unknown History rhamnosus 15 billion cell capsule (Probiotic) insulin detemir U-100 100 unit/mL 11 - 12 unit SUBCUT BID 02/21/22 02/21/22 Unknown History (3 mL) subcutaneous pen vitamin E 268 mg (400 unit) capsule 268 mg PO DAILY 02/21/22 02/21/22 Unknown History Allergies Allergy/AdvReac Type Severity Reaction Status Date / Time gabapentin Allergy Severe severe Verified 02/21/22 10:11 depression PFSH Acute PFSH: Medical History Amputation toe Chronic pain syndrome Essential hypertension H/O lymph node cancer T-CELL Mild CAD Neuropathy NICM (nonischemic cardiomyopathy) Osteoporosis PVD (peripheral vascular disease) Type 1 diabetes mellitus with unspecified complications Surgical History H/O arterial bypass of lower limb H/O kidney transplant H/O pancreas transplant History of esophagogastroduodenoscopy (EGD) 05/29/2017 Hx of BKA Family History Other Heart disease Social History Smoking and tobacco status: never smoked Alcohol intake: current Alcohol intake frequency: holidays/special occasions only Household members: none Marital status: Single History of recent travel: No Vitals/I&O/Wt Last Vital Signs Temp 101.2 F H 02/21/22 09:27 Pulse 129 H 02/21/22 11:45 Resp 21 H 02/21/22 11:45 BP 103/70 02/21/22 11:45 Pulse Ox 94 02/21/22 11:45 O2 Del Method 02/21/22 10:18 O2 Flow Rate 4 02/21/22 10:18 02/20/22 02/21/22 02/21/22 22:59 06:59 14:59 Intake Total 2785.49 / 2785.49 Balance 2785.49 / 2785.49 Weight last 48 hrs Weight 86.183 kg Data 02/21/22 09:30 02/21/22 09:30 Micro: Microbiology 02/21/22 09:44 Blood Culture - Preliminary Blood SPECIMEN COLLECTED 02/21/22 09:30 Blood Culture - Preliminary Blood SPECIMEN COLLECTED Coding Level of Care Code Acute Junior Software Developer for Jose Manuel Kuo
--- NOTE | 2022-02-21 13:30 | PC.NURSE ---
REPORT CALLED TO ESTHER CHEN IN ICU.
--- NOTE | 2022-02-21 13:40 | CT_ITS ---
WS: [id number] CT CHEST, ABDOMEN, AND PELVIS TECHNIQUE: Noncontrast CT of the chest, abdomen, and pelvis with coronal and sagittal reformatted beto ges. CLINICAL INFORMATION: sepsis COMPARISON: July 25, 2009 DLP: 595.[address] scans at [facility] use at least one of these dose optimization techniques: automated e xposure control; mA and/or kV adjustment per patient size (includes targeted exams where dose is matc hed to clinical indication); or iterative reconstruction. CT CHEST: Cardiomegaly. Coronary calcification. Patchy infiltrates within both lower lobes with compressive ate lectasis. Small bilateral pleural effusions. Additional patchy infiltrate infiltrates in the perihila r regions bilaterally. Recommend correlation for pneumonia. Normal caliber thoracic aorta. Aortic calcification. Coronary calcification. Calcified RIGHT hilar ly mph nodes. No axillary lymphadenopathy. CT ABDOMEN AND PELVIS: Noncontrast liver is normal. Fluid distended hydropic gallbladder. Dilated common bile duct with mild intrahepatic biliary ductal dilatation. Common bile duct measures 12 mm. This can be followed up wit h ultrasound or MRCP. Splenic artery calcification. Fatty atrophy of the pancreas. Aortic calcification. Normal caliber abd ominal aorta. Fluid distended bladder. LEFT lower quadrant renal transplant. Mild sigmoid constipation. Bilateral renal atrophy. No hydronephrosis. Adrenal glands are normal. Disc space narrowing worse at L1-L2. Postoperative changes intramedullary cheryl and screw fixation RIGH T hip. [place] [id number] IMPRESSION: 1. Bilateral patchy infiltrates within the perihilar regions and both lower lo bes with compressive atelectasis in the lung bases. Small bilateral pleural eff usions. Findings compatible with pneumonia. 2. Hydropic fluid distended gallbladder. Mild intrahepatic biliary dilatation with dilatation of the common bile duct. This can be followed up with MRCP or u ltrasound. No visualized cholelithiasis. 3. Atrophic kidneys bilaterally. 4. Markedly distended urinary bladder. 5. LEFT pelvic kidney transplant. 6. No other acute findings in the abdomen or pelvis.
[2022-02-21 13:48] LABS: Lactic Acid level (Lactate) 2.9 mmol/L (0.5-2.2)
[2022-02-21 13:52] LABS: Troponin 5 2HR 467.2 ng/L (0-15); Troponin 5 2HR Delta 79.2 ABS# (0-10)
[2022-02-21] MEDS: sodium chloride 0.9% 1,000 ML 125 ML IV (14:39)
[2022-02-21 14:47] LABS: Procalcitonin 78.11 ng/mL (0-0.5); Thyroid Stimulating Hormone 3.67 uIU/mL (0.27-4.20)
[2022-02-21 14:53] LABS: D Dimer 8.13 ug/mIFEU (0-0.59)
--- NOTE | 2022-02-21 15:42 | PC.NURSE ---
Discussed with Dr Hodges about patient's anticoagulants and was told to hold due to patient's bloodtinged sputum.
[2022-02-21 15:51] LABS: Estmated Average Glucose 166; Hemoglobin A1C 7.4 % (4.0-6.0)
[2022-02-21] MEDS: clopidogrel 300 mg Tablet PO (16:19)
[2022-02-21] MEDS: heparin drip 25,000 UNIT/500 ML PREMIX 17 UNIT IV (16:53)
[2022-02-21] MEDS: acetaminophen 500 mg Tablet PO (16:59)
[2022-02-21 17:08] LABS: Glucose Point of Care 377 mg/dL (70-110)
[2022-02-21] MEDS: insulin lispro 100 unit/1 mL SUBCUT (17:17)
[2022-02-21 18:17] LABS: Adenovirus Not Detected (NOT DETECT); Chlamydia Pneumoniae Not Detected (NOT DETECT); Coronavirus 229E,HKU1,NL63,OC4 Not Detected (NOT DETECT); Human Metapneumovirus Not Detected (NOT DETECT); Human Rhinovirus/Enterovirus Not Detected (NOT DETECT); Influenza A Not Detected (NOT DETECT); Influenza A H1 Not Detected (NOT DETECT); Influenza A H1-2009 Not Detected (NOT DETECT); Influenza A H3 Not Detected (NOT DETECT); Influenza B Not Detected (NOT DETECT); Mycoplasma Pneumoniae Not Detected (NOT DETECT); Parainfluenza Virus Type 1 Not Detected (NOT DETECT); Parainfluenza Virus Type 2 Not Detected (NOT DETECT); Parainfluenza Virus Type 3 Not Detected (NOT DETECT); Parainfluenza Virus Type 4 Not Detected (NOT DETECT); Respiratory Syncytial Virus A Not Detected (NOT DETECT); Respiratory Syncytial Virus B Not Detected (NOT DETECT); SARS-COV-2 Not Detected (NOT DETECT)
[2022-02-21 18:23] LABS: Lactate (Lactic Acid level) 2.3 mmol/L (0.5-2.2)
--- NOTE | 2022-02-21 18:24 | PM.HP ---
Providers/Chief Complaint Primary Care Provider: Atilio Mcgraw MD Chief Complaint: SOB/ CHEST PAIN History of Present Illness Heath Haney is a 66 year old male who has history of pancreatic transplant, renal transplant, on immunosuppressants, bilateral lower extremity amputation, COPD, nonoxygen dependent, presented to the hospital with chief complaint of shortness of breath and confusion. Patient is stating that his symptoms started last night with shortness of breath. He could not sleep all night he is endorsing subjective fevers. He has not noticed any nausea, vomiting but today in the morning he was very confused that prompted his visit in the ER. hx of reduced ejection fraction HF, cardiomyopathy he was recommended AICD by Dr. 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 As per the EMT he was given adenosine for narrow complex tachycardia/SVT, he was also cardioverted x1, patient has not experienced chest pain at all Review of Systems Const: Reports: fever(s), chills and body aches Eyes: Denies: change in vision ENMT: Denies: throat pain Card: Denies: chest pain Resp: Reports: dyspnea GI: Denies: abdominal pain : Denies: flank pain Musc: Denies: neck pain Skin/Breast: Denies: rash Neuro: Denies: headache(s) Psych: Reports: anxiety Endo: Denies: polyuria Brad/Lymph: Denies: easy bruising All/Imm: Reports: urticaria Medications/Allergies Home Medications Medication Instructions Recorded Confirmed Last Taken Type flash glucose sensor (FreeStyle #2 ea 04/28/19 02/21/22 Unknown Rx Girish 14 Day Sensor kit) Replace Liners #1 ea 05/13/19 02/21/22 Unknown Rx prostehetic insert for rt shoe #1 ea 09/06/19 02/21/22 Unknown Rx below knee prosthesis #1 ea 10/10/19 02/21/22 Unknown Rx cholecalciferol (vitamin D3) 50 50 mcg PO DAILY 05/22/20 02/21/22 Unknown History mcg (2,000 unit) capsule (Vitamin D3) albuterol sulfate 90 mcg/actuation 2 puff inhalation Q6H PRN 12/04/20 02/21/22 Unknown Rx aerosol inhaler (ProAir HFA) shortness of breath or wheezing #18 grams rollinator #1 ea 01/28/21 02/21/22 Unknown Rx insulin lispro 100 unit/mL See Rx Instructions .Route 02/07/21 02/21/22 Unknown Rx subcutaneous pen (Humalog KwikPen .COMPLEX #15 mL (U-100) Insulin) spironolactone 25 mg tablet 12.5 mg PO DAILY #45 tabs 04/26/21 02/21/22 Unknown Rx calcium carbonate 600 mg calcium 600 mg PO BID 07/11/21 02/21/22 Unknown History (1,500 mg) tablet (Calcium) coenzyme Q10 100 mg capsule (Co 100 mg PO DAILY 07/11/21 02/21/22 Unknown History Q-10) furosemide 20 mg tablet 10 mg PO DAILY PRN Edema 07/11/21 02/21/22 Unknown History prednisone 5 mg tablet 5 mg PO DAILY 07/11/21 02/21/22 Unknown History sirolimus 2 mg tablet (Rapamune) 4 mg PO DAILY 07/11/21 02/21/22 02/21/22 History diclofenac sodium 1 % topical gel See Rx Instructions .Route 08/13/21 02/21/22 Unknown Rx .COMPLEX #100 grams tadalafil 20 mg tablet (Cialis) 20 mg PO DAILY PRN sexual activity 09/23/21 02/21/22 Unknown Rx #30 tabs mupirocin 2 % topical ointment 1 applic topical DAILY #30 grams 10/23/21 02/21/22 Unknown Rx duloxetine 60 mg capsule,delayed 60 mg PO DAILY #90 caps 11/27/21 02/21/22 Unknown Rx release tizanidine 4 mg tablet 4 mg PO Q6H PRN muscle spasticity 12/31/21 02/21/22 Unknown Rx 30 days #30 tabs oxycodone 10 mg tablet 10 mg PO TID PRN pain 30 days #90 01/01/22 02/21/22 Unknown Rx tabs aspirin 81 mg tablet,delayed 81 mg PO .MWF 01/20/22 02/21/22 Unknown History release (Adult Low Dose Aspirin) diazepam 5 mg tablet 5 mg PO DAILY PRN Anxiety 01/20/22 02/21/22 Unknown History lidocaine 5 % topical patch 1 patch topical DAILY PRN Pain 01/20/22 02/21/22 Unknown History lisinopril 5 mg tablet 5 mg PO DAILY 01/20/22 02/21/22 Unknown History methylsulfonylmethane 1,000 mg 1,000 mg PO BID 01/20/22 02/21/22 Unknown History tablet (MSM) prenat.vits,walter,kzp-xsmf-ucywa 1 tab PO DAILY 01/20/22 02/21/22 Unknown History Lactobacillus acidophilus and 1 cap PO DAILY 02/21/22 02/21/22 Unknown History rhamnosus 15 billion cell capsule (Probiotic) insulin detemir U-100 100 unit/mL 11 - 12 unit SUBCUT BID 02/21/22 02/21/22 Unknown History (3 mL) subcutaneous pen vitamin E 268 mg (400 unit) capsule 268 mg PO DAILY 02/21/22 02/21/22 Unknown History Allergies Allergy/AdvReac Type Severity Reaction Status Date / Time gabapentin Allergy Severe severe Verified 02/21/22 10:11 depression PFSH Acute PFSH: Medical History (Updated 02/21/22 @ 18:54 by Jazmin Hodges MD) Amputation toe Chronic pain syndrome Erectile dysfunction Essential hypertension H/O lymph node cancer T-CELL Immunosuppression Mild CAD Neuropathy NICM (nonischemic cardiomyopathy) Osteoporosis PVD (peripheral vascular disease) Type 1 diabetes mellitus with unspecified complications Vitamin D insufficiency Surgical History H/O arterial bypass of lower limb H/O kidney transplant H/O pancreas transplant History of esophagogastroduodenoscopy (EGD) 05/29/2017 Hx of BKA Family History Other Heart disease Social History Smoking and tobacco status: never smoked Alcohol intake: current Alcohol intake frequency: holidays/special occasions only Household members: none Marital status: Single History of recent travel: No Vitals/I&O/Wt Last Vital Signs Temp 99.8 F H 02/21/22 18:13 Pulse 120 H 02/21/22 18:19 Resp 16 02/21/22 18:19 BP 104/59 02/21/22 18:19 Pulse Ox 96 02/21/22 18:19 O2 Del Method 02/21/22 18:19 O2 Flow Rate 4 02/21/22 18:19 02/21/22 02/21/22 02/21/22 06:59 14:59 22:59 Intake Total 2785.49 / 2785.49 Balance 2785.49 / 2785.49 Weight last 48 hrs Weight 58.967 kg Weight 86.183 kg Physical Exam Narrative: Patient is laying supine Currently on 4 L nasal cannula No active chest pain Short attention span however able to answer simple question Nonfocal neuro exam S1, S2 sinus tachycardia Abdomen soft Bilateral lower extremity amputation No active sign of cellulitis Family at the bedside Mild rhonchi noted on lung auscultation Awake and alert GCS 15 Data 02/21/22 09:30 02/21/22 09:30 Micro: Microbiology 02/21/22 09:44 Blood Culture - Preliminary Blood SPECIMEN COLLECTED 02/21/22 09:30 Blood Culture - Preliminary Blood SPECIMEN COLLECTED A&P Assessment and plan (1) Acute kidney injury: (2) Renal transplant, status post: (3) Status post pancreas transplantation: (4) Pneumonia: (5) Type 1 diabetes mellitus with unspecified complications: (6) Mild CAD: (7) NICM (nonischemic cardiomyopathy): (8) Hypoxia: Plan Acute hypoxia related to pneumonia Check COVID PCR Rule out PE patient has extremely high D-dimer Start him on heparin drip Start broad-spectrum antibiotics Check urine antigen, MRSA PCR continue DuoNeb and steroids NSTEMI Start ACS protocol with heparin no active chest pain, EKG showing sinus tachycardia heart rate in 130s UTE history of kidney transplant, hold immunosuppressants, check serologies level, continue steroids Nephro consulted Patient clinically is dehydrated Sepsis related to pneumonia Given 3 L in the ER Will follow up with blood cultures Lactic acidemia Sepsis criteria met with leukocytosis high lactic acid, tachycardia, fever Responding to IV fluids Sinus tachycardia with underlying reduced ejection fraction heart failure/cardiomyopathy Nonischemic Patient was recommended AICD by Dr. Vance Full code Cardiac diet Admit to ICU Awaiting transfer to tertiary center, he has been put on waiting list to 3-4 different hospitals DVT prophylaxis covered with heparin GGT Attestations Medical Necessity Statement*: Anticipating more than 2 midnights Time Spent in Patient Care: 40mins Coding Level of Care Code Acute Dye Colorist Dyer for Jose Manuel Fwd Diagnoses Acute kidney injury N17.9 Renal transplant, status post Z94.0 Status post pancreas transplantation Z94.83 Pneumonia J18.9 Type 1 diabetes mellitus with unspecified complications E10.8 Mild CAD I25.10 NICM (nonischemic cardiomyopathy) I42.8 Hypoxia R09.02
[2022-02-21 19:06] LABS: Troponin 5 6HR 507.6 ng/L (0-15); Troponin 5 6HR Delta 119.6 ng/L (0-12)
[2022-02-21 19:24] LABS: Urine Color Yellow (Yellow)
[2022-02-21 19:25] LABS: Add Urine Microscopic? YES; Bilirubin Urine Neg (Negative); Blood Urine 2+ (Negative); Glucose Urine UA 2+ (Normal); Ketones Urine 1+ (Negative); Leukocyte Esterase Urine Negative (Negative); Nitrate Urine Negative (Negative); Protein Urine 1+ (Negative); Urine Appearance Hazy (CLEAR); Urobilinogen Urine Norm (Negative); pH Urine 5 (5-7)
[2022-02-21 19:36] LABS: Bacteria Urine 1+ /hpf; Squamous Epithelial Cell Urine 0-4 /hpf (0-5); WBC Urine 0-4 /hpf (0-5)
[2022-02-21 19:47] LABS: RBC Urine 0-4 /hpf (0-2)
--- NOTE | 2022-02-21 20:09 | PC.NURSE ---
Critical lab called to Dr Cespedes, 6 hour trop delta 119.6.
[2022-02-21] MEDS: atorvastatin 40 mg Tablet 80 MG PO (20:39)
[2022-02-21] MEDS: insulin glargine 100 units/1 mL 10 UNIT SUBCUT (20:40)
[2022-02-21] MEDS: sodium chloride 0.9% 1,000 ML 999 ML IV (20:41)
[2022-02-21 20:59] LABS: Partial Thromboplastin Time 66.5 SECONDS (23.9-36.7)
[2022-02-21] MEDS: ipratropium-albuterol 3 mL Neb INHALATION (22:23)
[2022-02-21] MEDS: oxyCODONE-APAP 10-325 mg Tablet 1 TAB PO (22:40)
--- NOTE | 2022-02-21 22:45 | PC.NURSE ---
Physician Communication/Transfer Patient accepted into [facility] in [place], [place]. Patient and family updated on course of care, understanding verbalized. called at 2033 for attempt to call report to nurse, nurse to return call. Dr. Cespedes contacted to verify transfer via ground vs air. Ground ambulance transport verified. [id number] ambulance company contacted for transport; call to be returned for acceptance status. At 2142, Marya [employer] RN with received report on patient. At 2157, patient requesting home pain medication of oxycodone. Dr. Cespedes contacted; order received to initiate home dose of oxycodone for pain. Additionally, order received to continue heparin drip dose through transport. See MAR for details. Patient left unit with [facility] en route to in [place], [place] at 2242. Patient's family in room and updated on transport. Patient belongings placed in family member's care upon leaving.
[2022-02-22 06:21] LABS: Glucose Point of Care 206 mg/dL (70-110)
--- NOTE | 2022-02-25 16:32 | P.TS_ITS ---
Transfer Summary Providers Date of Admission: 02/21/22 11:09 Date of Discharge/Transfer: 02/25/22 Attending Provider at Admission: Jazmin Hodges MD Attending Provider at Transfer: Jazmin Hodges MD Primary Care Provider: Atilio Mcgraw MD Transfer Plans: Anticipated date of transfer: 02/25/22 . Diagnoses at Discharge Discharge Diagnosis (1) Acute kidney injury: Status: Acute (2) Renal transplant, status post: Status: Acute (3) Status post pancreas transplantation: Status: Acute (4) Pneumonia: Status: Acute (5) Type 1 diabetes mellitus with unspecified complications: Status: Acute (6) Mild CAD: Status: Acute (7) NICM (nonischemic cardiomyopathy): Status: Acute (8) Hypoxia: Status: Acute Reason for Visit Reason for Visit SOB/ CHEST PAIN Hospital Course Hospital Course Please refer to my h&p as this pt got transferred within 30 mins of admission orders. 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 Physical Exam Narrative: refer to my h&p TS Data Studies Completed and Pending Pending at discharge Category Date Time Status BK VIRUS DNA, QN REAL TIME PCR Routine Lab 02/21/22 20:37 Received Rapamycin / Sirolimus Urgent Lab 02/21/22 17:48 Received Completed Studies During Hospitalization Category Date Time Status CT chest abdomen pelvis [[place] [id number] Cat Scan 02/21/22 13:40 Completed ] Routine XR chest 1V portable [id number] Stat Exams 02/21/22 09:25 Completed Laboratory Last Values WBC 15.8 10^3/uL (4.0-10.0) H 02/21/22 09:30 RBC 4.38 10^6/uL (4.1-5.3) 02/21/22 09:30 Hgb 12.3 g/dL (11.7-16.6) 02/21/22 09:30 Hct 39.1 % (42.0-52.0) L 02/21/22 09:30 MCV 89.3 fl (80-94) 02/21/22 09:30 MCH 28.1 pg (28.0-34.0) 02/21/22 09:30 MCHC 31.5 g/dL (30.0-36.0) 02/21/22 09:30 RDW 13.4 % (12.1-15.1) 02/21/22 09:30 Plt Count 195 10^3/cmm (130-400) 02/21/22 09:30 MPV 10.5 fL (7.4-10.4) H 02/21/22 09:30 Neut % (Auto) 91.5 % 02/21/22 09:30 Lymph % (Auto) 2.1 % 02/21/22 09:30 [place] % (Auto) 5.2 % 02/21/22 09:30 Eos % (Auto) 0.0 % 02/21/22 09:30 Baso % (Auto) 0.4 % 02/21/22 09:30 Neut # (Auto) 14.48 10^3/uL (1.8-7.7) H 02/21/22 09:30 Lymph # (Auto) 0.3 10^3/uL (0.8-4.8) L 02/21/22 09:30 [place] # (Auto) 0.8 10^3/uL (0.2-0.9) 02/21/22 09:30 Eos # (Auto) 0.0 10^3/uL (0.0-0.8) 02/21/22 09:30 Baso # (Auto) 0.1 10^3/uL (0.0-0.1) 02/21/22 09:30 Nucleated RBC % (auto) 0 % 02/21/22 09:30 Nucleated RBCs # 0.0 /100WBC 02/21/22 09:30 APTT 66.5 SECONDS (23.9-36.7) H 02/21/22 20:37 D-Dimer 8.13 ug/mIFEU (0-0.59) H 02/21/22 09:30 Specimen Type Arterial 02/21/22 09:24 Sample Site Radial, left 02/21/22 09:24 ABG pH 7.45 (7.35-7.45) 02/21/22 09:24 ABG pCO2 30.4 mmHg (35-45) L 02/21/22 09:24 ABG pO2 61.8 mmHg (80.0-100.0) L 02/21/22 09:24 ABG HCO3 20.9 mmol/L (22-26) L 02/21/22 09:24 ABG O2 Saturation 93.3 02/21/22 09:24 ABG Base Excess -2.3 mmol/L (-2.0-2.0) L 02/21/22 09:24 Petey Test Pos 02/21/22 09:24 A-a O2 Gradient 20.3 mmHg (5-10) H 02/21/22 09:24 Hematocrit 36.3 % (42-52) L 02/21/22 09:24 Hgb O2 Saturation 91.3 % (95-100) L 02/21/22 09:24 Carboxyhemoglobin 1.4 %THgb (0.4-20.1) 02/21/22 09:24 Methemoglobin 0.7 % (0.4-1.5) 02/21/22 09:24 Total Hemoglobin 11.8 g/dL (14-18) L 02/21/22 09:24 Sodium 137.0 mmol/L (131-143) 02/21/22 09:24 Potassium 4.4 mmol/L (3.5-5.0) 02/21/22 09:24 Glucose 284.0 mg/dL (70-115) H 02/21/22 09:24 Ionized Calcium 1.1 mmol/L (1.1-1.4) 02/21/22 09:24 O2 Delivery Device Nc 02/21/22 09:24 O2 Liters/Min 4.0 % 02/21/22 09:24 FiO2 36.0 % 02/21/22 09:24 Acoustic Intelligence Specialist ID Cak 02/21/22 09:24 Sodium 137 mmol/L (136-145) 02/21/22 09:30 Potassium 5.1 mmol/L (3.5-5.1) 02/21/22 09:30 Chloride 100 mmol/L (98-107) 02/21/22 09:30 Carbon Dioxide 22 mmol/L (22-29) 02/21/22 09:30 Anion Gap 20.1 (5-19) H 02/21/22 09:30 BUN 46 mg/dL (8-23) H 02/21/22 09:30 Creatinine 1.9 mg/dL (0.7-1.2) H 02/21/22 09:30 GFR Calculation 35.5 mL/min (90-130) L 02/21/22 09:30 Glucose 279 mg/dL (65-115) H 02/21/22 09:30 POC Glucose 206 mg/dL (70-110) H 02/21/22 20:20 Estimat Average Glucose 166 02/21/22 09:30 Hemoglobin A1c 7.4 % (4.0-6.0) H 02/21/22 09:30 Calculated Osmolality 306 mOsm/kg (285-295) H 02/21/22 09:30 Lactic Acid 3.8 mmol/L (0.5-2.2) H 02/21/22 09:30 Lactic Acid (Sepsis) 2.9 mmol/L (0.5-2.2) H 02/21/22 13:00 Lactate 2.3 mmol/L (0.5-2.2) H 02/21/22 17:48 Calcium 8.2 mg/dL (8.5-10.5) L 02/21/22 09:30 Magnesium 1.7 mg/dL (1.7-2.3) 02/21/22 09:30 Total Bilirubin 0.5 mg/dL (0.15-1.2) 02/21/22 09:30 AST 57 U/L (0-40) H 02/21/22 09:30 ALT 22 U/L (0-41) 02/21/22 09:30 Alkaline Phosphatase 100 U/L (40-130) 02/21/22 09:30 Creatine Kinase 748 U/L (39-308) H* 02/21/22 09:30 CK-MB (CK-2) 14.0 ng/mL (0-10.4) H 02/21/22 09:30 CK-MB (CK-2) Rel Index 1.8 % (0.0-5.3) 02/21/22 09:30 Troponin T Baseline 388 ng/L (0-15) H* 02/21/22 09:30 Troponin T 120 Minute 467.2 ng/L (0-15) H 02/21/22 13:00 Delta Troponin T 79.2 ABS# (0-10) H* 02/21/22 13:00 Troponin T Hi Sens 6Hr 507.6 ng/L (0-15) H 02/21/22 18:30 Troponin T Hi Sens 6Hr Delta 119.6 ng/L (0-12) H* 02/21/22 18:30 Total Protein 5.7 g/dL (6.6-8.7) L 02/21/22 09:30 Albumin 3.3 g/dL (3.5-5.2) L 02/21/22 09:30 Globulin 2.4 g/dL (1.3-4.6) 02/21/22 09:30 Lipase 6 U/L (13-60) L 02/21/22 09:30 Procalcitonin 78.11 ng/mL (0-0.5) H 02/21/22 09:30 TSH 3.67 uIU/mL (0.27-4.20) 02/21/22 09:30 Urine Color Yellow (Yellow) 02/21/22 17:40 Urine Appearance Hazy (CLEAR) A 02/21/22 17:40 Urine pH 5 (5-7) 02/21/22 17:40 Ur Specific [place] 1.020 (1.005-1.030) 02/21/22 17:40 Urine Protein 1+ (Negative) H 02/21/22 17:40 Urine Glucose (UA) 2+ (Normal) H 02/21/22 17:40 Urine Ketones 1+ (Negative) H 02/21/22 17:40 Urine Blood 2+ (Negative) H 02/21/22 17:40 Urine Nitrate Negative (Negative) 02/21/22 17:40 Urine Bilirubin Neg (Negative) 02/21/22 17:40 Urine Urobilinogen Norm mg/dL (Negative) 02/21/22 17:40 Ur Leukocyte Esterase Negative (Negative) 02/21/22 17:40 Urine RBC 0-4 /hpf (0-2) H 02/21/22 17:40 Urine WBC 0-4 /hpf (0-5) H 02/21/22 17:40 Ur Squamous Epith Cells 0-4 /hpf (0-5) H 02/21/22 17:40 Ur Transition Epith Cell None /hpf 02/21/22 17:40 Amorphous Sediment Not Reportable 02/21/22 17:40 Urine Bacteria 1+ /hpf (NONE) H 02/21/22 17:40 Coronavirus 229E (PCR) Not detected (NOT DETECT) 02/21/22 14:44 Influenza Type A Ag negative (Negative) 02/21/22 10:20 Influenza Type B Ag negative (Negative) 02/21/22 10:20 SARS-CoV-2 (PCR) Not detected (NOT DETECT) 02/21/22 14:44 Radiology Impressions Chest X-Ray 02/21/22 09:25 Impression: 1. Bilateral diffuse patchy opacities and cardiomegaly suggestive of pulmonary edema. 2. Atherosclerosis Chest/Abdomen/Pelvis CT 02/21/22 13:40 IMPRESSION: 1. Bilateral patchy infiltrates within the perihilar regions and both lower lobes with compressive atelectasis in the lung bases. Small bilateral pleural effusions. Findings compatible with pneumonia. 2. Hydropic fluid distended gallbladder. Mild intrahepatic biliary dilatation with dilatation of the common bile duct. This can be followed up with MRCP or ultrasound. No visualized cholelithiasis. 3. Atrophic kidneys bilaterally. 4. Markedly distended urinary bladder. 5. LEFT pelvic kidney transplant. 6. No other acute findings in the abdomen or pelvis. Recent Clincial Data Last Vital Signs Temp 98.1 F 02/21/22 19:45 Pulse 117 H 02/21/22 22:30 Resp 20 H 02/21/22 22:40 BP 123/83 02/21/22 22:45 Pulse Ox 94 02/21/22 22:40 O2 Del Method 02/21/22 22:24 O2 Flow Rate 4 02/21/22 22:24 Vitals Last Vital Signs Temp 98.1 F 02/21/22 19:45 Pulse 117 H 02/21/22 22:30 Resp 20 H 02/21/22 22:40 BP 123/83 02/21/22 22:45 Pulse Ox 94 02/21/22 22:40 O2 Del Method 02/21/22 22:24 O2 Flow Rate 4 02/21/22 22:24 TS Medications Medications Discontinued Medications Acetaminophen (Acetaminophen 500 Mg Tablet) 500 mg PO Q4H PRN PRN Reason: fever Last Admin: 02/21/22 16:59 Dose: 500 mg Albuterol/Ipratropium (Ipratropium-Albuterol 3 Ml Neb) 3 ml INHALATION Q6H PRN PRN Reason: SHORTNESS OF BREATH Last Admin: 02/21/22 22:23 Dose: 3 ml Aspirin (Aspirin 81 Mg Ec Tablet) 81 mg PO DAILY SHARON Aspirin (Aspirin 325 Mg Ec Tablet) 325 mg PO ONCE ONE Stop: 02/21/22 14:23 Last Admin: 02/21/22 15:01 Dose: Not Given Atorvastatin Calcium (Atorvastatin 40 Mg Tablet) 80 mg PO BEDTIME [facility] Last Admin: 02/21/22 20:39 Dose: 80 mg Clopidogrel Bisulfate (Clopidogrel 75 Mg Tablet) 75 mg PO DAILY [facility] Clopidogrel Bisulfate (Clopidogrel 300 Mg Tablet) 300 mg PO ONCE ONE Stop: 02/21/22 14:23 Last Admin: 02/21/22 16:19 Dose: 300 mg Dextrose (Dextrose 50% Syringe 50 Ml) 25 ml IVP ONCE PRN; Protocol PRN Reason: hypoglycemia protocol Dextrose (Dextrose 50% Syringe 50 Ml) 50 ml IVP PRN PRN; Protocol PRN Reason: hypoglycemia protocol Glucagon (Glucagon 1 Mg/Ml Inj 1 Ml) 1 mg IM ONCE PRN; Protocol PRN Reason: Adult Acute Hypoglycemia Prot. Heparin Sodium (Porcine) (Heparin 5,000 Unit/Ml Inj 1 Ml) 5,000 unit SUBCUT Q12H [facility] Last Admin: 02/21/22 16:17 Dose: Not Given Heparin Sodium (Porcine) (Heparin 5,000 Unit/Ml Inj 1 Ml) 0 unit IV PRN PRN; Protocol PRN Reason: Heparin weight-base protocol Levofloxacin/Dextrose (Levaquin-D5w) 750 mg in 150 mls @ 100 mls/hr IV ONCE ONE; Protocol Stop: 02/21/22 11:11 Last Infusion: 02/21/22 11:49 Dose: Infused Piperacillin Sod/Tazobactam (Sod 3.375 gm/ Sodium Chloride) 50 mls @ 100 mls/hr IV ONCE ONE; Protocol Stop: 02/21/22 10:11 Last Infusion: 02/21/22 11:49 Dose: Infused Sodium Chloride (Sodium Chloride 0.9%) 2,585.49 mls @ 2,585.49 mls/hr 30 ml/kg infuse over 1 hr (2585.49 ml) IV .Q1H ONE Stop: 02/21/22 11:04 Last Infusion: 02/21/22 11:49 Dose: Infused Sodium Chloride (Sodium Chloride 0.9%) 1,000 mls @ 75 mls/hr IV .[id number] [facility] Last Infusion: 02/21/22 21:30 Dose: 75 mls/hr Dextrose (D5w) 500 mls @ 100 mls/hr IV ONCE PRN; Protocol PRN Reason: Adult Acute Hypoglycemia Prot Sodium Chloride (Sodium Chloride 0.9%) 1,000 mls @ 75 mls/hr IV .[id number] [facility] Ceftriaxone Sodium 1,000 mg/ (Sodium Chloride) 50 mls @ 100 mls/hr IV DAILY SC H; Protocol Piperacillin Sod/Tazobactam (Sod 3.375 gm/ Sodium Chloride) 50 mls @ 12.5 mls/hr IV Q8H [facility]; Protocol Last Admin: 02/21/22 15:08 Dose: Not Given Heparin Sodium/Sodium Chloride (Heparin Drip) 25,000 unit in 500 mls @ 0 mls/hr IV .Q0M SHARON; Protocol Last Admin: 02/21/22 16:53 Dose: 9.86 unit/kg/hr, 17 mls/hr Sodium Chloride (Sodium Chloride 0.9%) 1,000 mls @ 999 mls/hr IV .Q1H1M ONE Stop: 02/21/22 19:42 Last Infusion: 02/21/22 22:48 Dose: Infused Insulin Glargine (Insulin Glargine 100 Units/1 Ml) 10 unit SUBCUT BEDTIME [facility] Last Admin: 02/21/22 20:40 Dose: 10 unit Insulin Human Lispro (Insulin Lispro 100 Unit/1 Ml) 0 unit SUBCUT TIDWM [facility]; Protocol Last Admin: 02/21/22 17:17 Dose: 14 unit Methylprednisolone Sodium Succinate (Methylprednisolone Sod Succ 40 Mg/Ml Inj) 40 mg IVP Q12H [facility] Last Admin: 02/21/22 16:20 Dose: 40 mg Metoprolol Succinate (Metoprolol Succinate Er (24 Hr) 25 Mg Tablet) 12.5 mg PO DAILY [facility] Ondansetron HCl (Ondansetron 2 Mg/Ml Sdv 2 Ml) 4 mg IVP Q6H PRN PRN Reason: NAUSEA AND VOMITING Ondansetron HCl (Ondansetron 2 Mg/Ml Sdv 2 Ml) 4 mg IVP Q6H PRN PRN Reason: NAUSEA AND VOMITING Oxycodone/Acetaminophen (Oxycodone-Apap 10-325 Mg Tablet) 1 tab PO Q6H PRN PRN Reason: MODERATE PAIN Last Admin: 02/21/22 22:40 Dose: 1 tab Allergies gabapentin Allergy (Severe, Verified 02/21/22 10:11) severe depression Home Medications flash glucose sensor (FreeStyle Girish 14 Day Sensor kit) #2 ea 04/28/19 [Rx Confirmed 02/21/22] Replace Liners #1 ea 05/13/19 [Rx Confirmed 02/21/22] prostehetic insert for rt shoe #1 ea 09/06/19 [Rx Confirmed 02/21/22] below knee prosthesis #1 ea 10/10/19 [Rx Confirmed 02/21/22] cholecalciferol (vitamin D3) 50 mcg (2,000 unit) capsule (Vitamin D3) 50 mcg PO DAILY 05/22/20 [History Confirmed 02/21/22] albuterol sulfate 90 mcg/actuation aerosol inhaler (ProAir HFA) 2 puff inhalation Q6H PRN shortness of breath or wheezing #18 grams 12/04/20 [Rx Confirmed 02/21/22] rollinator #1 ea 01/28/21 [Rx Confirmed 02/21/22] insulin lispro 100 unit/mL subcutaneous pen (Humalog KwikPen (U-100) Insulin) See Rx Instructions .Route .COMPLEX #15 mL 02/07/21 [Rx Confirmed 02/21/22] spironolactone 25 mg tablet 12.5 mg PO DAILY #45 tabs 04/26/21 [Rx Confirmed 02/21/22] calcium carbonate 600 mg calcium (1,500 mg) tablet (Calcium) 600 mg PO BID 07/11/21 [History Confirmed 02/21/22] coenzyme Q10 100 mg capsule (Co Q-10) 100 mg PO DAILY 07/11/21 [History Confirmed 02/21/22] furosemide 20 mg tablet 10 mg PO DAILY PRN Edema 07/11/21 [History Confirmed 02/21/22] prednisone 5 mg tablet 5 mg PO DAILY 07/11/21 [History Confirmed 02/21/22] sirolimus 2 mg tablet (Rapamune) 4 mg PO DAILY 07/11/21 [History Confirmed 02/21/22] diclofenac sodium 1 % topical gel See Rx Instructions .Route .COMPLEX #100 grams 08/13/21 [Rx Confirmed 02/21/22] tadalafil 20 mg tablet (Cialis) 20 mg PO DAILY PRN sexual activity #30 tabs 09/23/21 [Rx Confirmed 02/21/22] mupirocin 2 % topical ointment 1 applic topical DAILY #30 grams 10/23/21 [Rx Con firmed 02/21/22] duloxetine 60 mg capsule,delayed release 60 mg PO DAILY #90 caps 11/27/21 [Rx Confirmed 02/21/22] tizanidine 4 mg tablet 4 mg PO Q6H PRN muscle spasticity 30 days #30 tabs 12/31/21 [Rx Confirmed 02/21/22] oxycodone 10 mg tablet 10 mg PO TID PRN pain 30 days #90 tabs 01/01/22 [Rx Confirmed 02/21/22] aspirin 81 mg tablet,delayed release (Adult Low Dose Aspirin) 81 mg PO .MWF 01/20/22 [History Confirmed 02/21/22] diazepam 5 mg tablet 5 mg PO DAILY PRN Anxiety 01/20/22 [History Confirmed 02/21/22] lidocaine 5 % topical patch 1 patch topical DAILY PRN Pain 01/20/22 [History Confirmed 02/21/22] lisinopril 5 mg tablet 5 mg PO DAILY 01/20/22 [History Confirmed 02/21/22] methylsulfonylmethane 1,000 mg tablet (MSM) 1,000 mg PO BID 01/20/22 [History Confirmed 02/21/22] prenat.vits,walter,qih-obvb-utafo 1 tab PO DAILY 01/20/22 [History Confirmed 02/21/22] Lactobacillus acidophilus and rhamnosus 15 billion cell capsule (Probiotic) 1 cap PO DAILY 02/21/22 [History Confirmed 02/21/22] insulin detemir U-100 100 unit/mL (3 mL) subcutaneous pen 11 - 12 unit SUBCUT BID 02/21/22 [History Confirmed 02/21/22] vitamin E 268 mg (400 unit) capsule 268 mg PO DAILY 02/21/22 [History Confirmed 02/21/22] Discharge Plan Discharge Patient Disposition: Xfer Other Condition: Stable Prescriptions: No Action cholecalciferol (vitamin D3) [Vitamin D3] 50 mcg (2,000 unit) capsule 50 mcg PO DAILY furosemide 20 mg tablet 10 mg PO DAILY PRN (Reason: Edema) coenzyme Q10 [Co Q-10] 100 mg capsule 100 mg PO DAILY sirolimus [Rapamune] 2 mg tablet 4 mg PO DAILY prednisone 5 mg tablet 5 mg PO DAILY calcium carbonate [Calcium 600] 600 mg calcium (1,500 mg) tablet 600 mg PO BID mupirocin 2 % ointment 1 applic TOPICAL DAILY Qty: 30 1RF diazepam 5 mg tablet 5 mg PO DAILY PRN (Reason: Anxiety) lidocaine 5 % adhesive patch,medicated 1 patch TOPICAL DAILY PRN (Reason: Pain) Rx Instructions: 12 HOURS ON 12 HOURS OFF lisinopril 5 mg tablet 5 mg PO DAILY aspirin [Adult Low Dose Aspirin] 81 mg tablet,delayed release (DR/EC) 81 mg PO .MWF methylsulfonylmethane [MSM] 1,000 mg tablet 1,000 mg PO BID prenat.vits,walter,gpm-sifn-hrsjx Tablet 1 tab PO DAILY (DME) FreeStyle Girish 14 Day Sensor Kit See Rx Instructions .ROUTE .MEDSUPPLY Qty: 2 3RF Rx Instructions: replace every 2 weeks (DME) Replace Liners Qty: 1 0RF Rx Instructions: DX: BKA left (Z89.512), IDDM (E11.9) (DME) prostehetic insert for rt shoe See Rx Instructions .Route .MEDSUPPLY Qty: 1 0RF Rx Instructions: dme- alpha omega (DME) below knee prosthesis See Rx Instructions .Route .MEDSUPPLY Qty: 1 0RF Rx Instructions: As directed albuterol sulfate [ProAir HFA] 90 mcg/actuation HFA aerosol inhaler 2 puff INHALATION Q6H PRN (Reason: shortness of breath or wheezing) Qty: 18 6RF (DME) rollinator See Rx Instructions .Route .MEDSUPPLY Qty: 1 0RF Rx Instructions: As directed insulin lispro [Humalog KwikPen Insulin] 100 unit/mL insulin pen See Rx Instructions .ROUTE .COMPLEX Qty: 15 5RF Dose Instruction: USE DIRECTED ON SLIDING SCALE CHART BY . Rx Instructions: USE DIRECTED ON SLIDING SCALE CHART BY . spironolactone 25 mg tablet 12.5 mg PO DAILY Qty: 45 3RF diclofenac sodium 1 % gel See Rx Instructions .ROUTE .COMPLEX Qty: 100 8RF Dose Instruction: APPLY TWO GRAMS FOUR TIMES DAILY TO SINGLE ELBOW, WRIST OR HAND AND FOR HAND INCLUDES PALM/FINGERS/BACK OF HAND Rx Instructions: APPLY TWO GRAMS FOUR TIMES DAILY TO SINGLE ELBOW, WRIST OR HAND AND FOR HAND INCLUDES PALM/FINGERS/BACK OF HAND tadalafil [Cialis] 20 mg tablet 20 mg PO DAILY PRN (Reason: sexual activity) Qty: 30 0RF Rx Instructions: administer approximately 30min before sexual activity; do not use more than 1 dose per 24hrs duloxetine 60 mg capsule,delayed release(DR/EC) 60 mg PO DAILY Qty: 90 3RF tizanidine 4 mg tablet 4 mg PO Q6H PRN (Reason: muscle spasticity) 30 Days Qty: 30 3RF oxycodone 10 mg tablet 10 mg PO TID PRN (Reason: pain) 30 Days Qty: 90 0RF vitamin E 268 mg (400 unit) Capsule 268 mg PO DAILY Probiotic 15 billion cell Capsule 1 cap PO DAILY insulin detemir U-100 100 unit/mL (3 mL) insulin pen 11 - 12 unit SUBCUT BID Discharge Orders: Transfer Out of Facility (Order); Ordered 02/21/22 Ordered By: Jazmin Hodges Referrals: Atilio Mcgraw MD [Primary Care Provider] - Transfer Attestations Time Spent in Transfer Care: less than 30 min Quality Metrics Clinical Quality Measures [ No reported AMI, CVA or VTE this stay] Coding Level of Care Code 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
[2022-03-01 18:54] LABS: BK VIRUS DNA, QN PCR NOT DETECTED copies/mL; BK VIRUS DNA, QN RT PCR NOT DETECTED Log cps/mL; SOURCE WHOLE BLOOD
== END 2022-02-22 00:08 | disposition other institution (70) ==
LOC: ER 11:04 → ICU 13:02
PROVIDERS: Admitting Provider Internal Medicine; Emergency Provider Family Medicine; PCP Internal Medicine; Visit Provider Internal Medicine
DX: N17.9 Acute kidney failure, unspecified (principal); Z94.0 Kidney transplant status; Z94.83 Pancreas transplant status; E10.8 Type 1 diabetes mellitus with unspecified complications; I25.10 Atherosclerotic heart disease of native coronary artery without angina pectoris; I42.8 Other cardiomyopathies; R09.02 Hypoxemia; J44.9 Chronic obstructive pulmonary disease, unspecified; Z79.82 Long term (current) use of aspirin; I10 Essential (primary) hypertension; M81.0 Age-related osteoporosis without current pathological fracture; Z79.4 Long term (current) use of insulin
CPT/HCPCS: 36415; 36416; 36600; 71045; 71250; 74176; 80051; 80053; 80195; 81001; 82330; 82550; 82553; 82805; 82962; 83036; 83605; 83690; 83735; 84145; 84443; 84484; 85025; 85378; 85730; 86403; 87040; 87070; 87077; 87186; 87205; 87449; 87635; 87641; 87798; 87804; 93005; 94640; 94664; 96365; 96366; 96367; 96372; 96375; 99285; G0378; J1644; J1815; J1956; J2543; J2920; J7030

== ENCOUNTER → 2022-04-03 11:31 | Outpatient (BNVA) | payer MEDICARE, MEDICAID, SELFPAY | PROVIDERS: PCP Internal Medicine; Visit Provider Internal Medicine Cardiovascular Disease | DX: R09.02 Hypoxemia (principal); N17.9 Acute kidney failure, unspecified; Z94.83 Pancreas transplant status; Z94.0 Kidney transplant status; I25.10 Atherosclerotic heart disease of native coronary artery without angina pectoris; I73.9 Peripheral vascular disease, unspecified; E10.8 Type 1 diabetes mellitus with unspecified complications; Z79.4 Long term (current) use of insulin; I42.8 Other cardiomyopathies; Z89.421 Acquired absence of other right toe(s); I11.0 Hypertensive heart disease with heart failure; I50.9 Heart failure, unspecified | CPT/HCPCS: 99215 ==

== ENCOUNTER → 2022-04-17 11:34 | Outpatient (BNVA) | payer MEDICARE, MEDICAID, SELFPAY | PROVIDERS: PCP Internal Medicine | DX: Z94.0 Kidney transplant status (principal) | CPT/HCPCS: 80195 ==

== ENCOUNTER → 2022-05-19 09:59 | Outpatient (BNVA) | payer MEDICARE, MEDICAID, SELFPAY | PROVIDERS: PCP Internal Medicine; Visit Provider Internal Medicine | DX: Z94.83 Pancreas transplant status (principal) | CPT/HCPCS: 71046 ==

== ENCOUNTER 2022-06-12 10:54 | Day surgery (SDC) | payer MEDICARE, MEDICAID, SELFPAY ==
--- NOTE | 2022-06-12 10:59 | US_ITS ---
WS: [id number] INDICATION: Paracentesis TECHNIQUE: Ultrasound abdomen limited FINDINGS: Four-quadrant ultrasound. Insufficient fluid for paracentesis. US/US abdomen lmt fluid [id number] IMPRESSION: No significant ascites.
[2022-06-12 11:18] VITALS: BP 110/82; PULSE 88; RESP 20; TEMP 36.2; O2SAT 91; BMI 18.6
--- NOTE | 2022-06-12 11:46 | PC.NURSE ---
pt arrived for paracentesis his scan revealed that there was not enough fluid to drain but patient had the appearance of being short of breath and had not felt well over the past 3 days it was recommended to the pt to go to the ED to be checked out pt agreed and was transported to the ED
== END 2022-06-12 11:34 ==
LOC: GILAB 10:56
PROVIDERS: Radiology Neuroradiology; PCP Internal Medicine; Visit Provider Internal Medicine
DX: R18.8 Other ascites (principal)
CPT/HCPCS: 49083; 76705

== ENCOUNTER 2022-06-12 11:40 | Emergency (ER) | payer MEDICARE, MEDICAID, SELFPAY ==
[2022-06-12 11:44] VITALS: BP 104/78; PULSE 86; RESP 16; TEMP 36.6; O2SAT 100; BMI 19.2
--- NOTE | 2022-06-12 11:45 | ECG_ITS ---
[facility] Test Date: 2022-06-12 Pat Name: Heath Haney Department: Room: Gender: Male Gerontology Aide: : 1955 Requested By: Wallace Silvestre Order Number: [id number] Reading MD: Yamila Lara M.D. Measurements Intervals [place] Rate: 81 P: 49 ND: 215 QRS: -26 QRSD: 128 T: 134 QT: 397 QTc: 462 Interpretive Statements SINUS RHYTHM WITH FIRST DEGREE AV BLOCK WITH OCCASIONAL VENTRICULAR PREMATURE COMPLEXES ANTERIOR MYOCARDIAL INFARCTION , OF INDETERMINATE AGE [40+ ms Q WAVE AND/OR ST/T ABNORMALITY IN V3/V4] Compared to ECG 02/21/2022 09:28:09 Ventricular premature complex(es) now present First degree AV block now present Sinus tachycardia no longer present Left-axis deviation no longer present Myocardial infarct finding still present Electronically Signed On 06-13-2022 1:32:54 CDT by Yamila Lara M.D. [id number]
--- NOTE | 2022-06-12 11:45 | XRR_ITS ---
PROCEDURE INFORMATION: Exam: XR Chest Exam date and time: 06/12/2022 12:04 PM Age: 66 years old Clinical indication: Cough; Additional info: Dyspnea/cough TECHNIQUE: Imaging protocol: Radiologic exam of the chest. Views: 1 view. COMPARISON: CR XR chest 2V* [id number] 05/19/2022 9:58 AM FINDINGS: Lungs: There is no consolidation. Pleural spaces: The right lateral costophrenic sulcus is blunted. The left lateral costophrenic sulcus is blunted. No pneumothorax. Heart/Mediastinum: There is moderate enlargement of the cardiac silhouette. Bones/joints: Chronic fractures of the left scapula and left lateral ribs. No acute fracture. XR/XR chest 1V portable [id number] IMPRESSION: 1. Bilateral pleural effusions are similar to 05/19/2022. 2. Interval clearing of both lungs.
--- NOTE | 2022-06-12 11:56 | W.ED.WEAKNES ---
HPI - Weakness General: Chief complaint: Weakness Stated complaint: SOB Time Seen by Provider: 06/12/22 11:42 Source: patient Mode of arrival: ambulatory History of Present Illness: 56-year-old male presents to the emergency room from GI lab. He was supposed to get a paracentesis ultrasound showed no significant ascitic fluid. While he was there he became short of breath. He says last several weeks he has been getting progressively more short of breath he does not normally wear oxygen at home. He is not having any chest pain he does complain of increased weakness about 4 to 5 months ago patient had an episode of pneumonia and decompensated congestive heart failure and was hospitalized. He states since then he has felt short of breath. MD Complaint: generalized weakness Onset (ago): day(s) Duration: constant Location: generalized Relieving factors: none Exacerbating factors: none Associated symptoms: Denies chest pain, chills, confusion, melena, decreased appetite, diaphoresis, dysuria, easy bruising, fever(s), headache(s), myalgias, nausea, rash, short of breath or syncope Review of Systems Const: Denies: fever(s), chills or diaphoresis ENMT: Denies: throat pain, ear or mastoid pain, nasal discharge or nasal congestion Card: Denies: chest pain or syncope Resp: Denies: dyspnea, productive cough or non-productive cough GI: Denies: nausea or melena : Denies: dysuria Skin/Breast: Denies: rash or pruritus Neuro: Denies: headache(s) or confusion Brad/Lymph: Denies: easy bruising PFSH ED PFSH: Medical History Acute kidney injury Amputation toe Chronic pain syndrome Erectile dysfunction Essential hypertension H/O lymph node cancer T-CELL Hypoxia Immunosuppression Mild CAD Neuropathy NICM (nonischemic cardiomyopathy) Osteoporosis Pneumonia PVD (peripheral vascular disease) Type 1 diabetes mellitus with unspecified complications Vitamin D insufficiency Surgical History H/O arterial bypass of lower limb H/O kidney transplant H/O pancreas transplant History of esophagogastroduodenoscopy (EGD) 05/29/2017 Hx of BKA Renal transplant, status post Status post pancreas transplantation Family History Other Heart disease Social History Smoking and tobacco status: never smoked Alcohol intake: current Alcohol intake frequency: holidays/special occasions only Substance/Drug Use: never Household members: none Marital status: Single Physical Exam Const: GENERAL APPEARANCE: cooperative and comfortable ORIENTATION/CONSCIOUSNESS: Yes awake, Yes oriented to person, Yes oriented to place and Yes oriented to time HENMT: COMMON NORMALS: normocephalic, atraumatic and hearing grossly normal bilaterally HEAD & SCALP: normocephalic and atraumatic Resp: COMMON NORMALS: normal respiratory effort, No retractions, No use of accessory muscles and clear to auscultation bilaterally AUSCULTATION: clear to auscultation bilaterally Cardio: COMMON NORMALS: regular rate, regular rhythm and No murmurs present (Cardio) RATE: regular rate RHYTHM: regular rhythm GI: COMMON NORMALS: Soft to palpation and No hepatosplenomegaly present AUSCULTATION: Yes normoactive bowel sounds PALPATION: Yes Soft to palpation, No Tenderness to palpation present (GI), No Guarding due to palpation present (GI) and Yes No hepatosplenomegaly present Extremity: COMMON NORMALS: normal to inspection, capillary refill normal, no clubbing, cyanosis or edema, no calf tenderness and no pedal edema Neuro: SENSORIUM/ORIENTATION: Yes oriented to person, Yes oriented to place and Yes oriented to time Skin: COMMON NORMALS: no rashes or lesions noted GENERAL SKIN EXAM: no rashes or lesions noted Course Vital Signs: Vital signs: Vital Signs Temperature 97.9 F 06/12/22 11:44 Pulse Rate 75 06/12/22 16:48 Respiratory Rate 16 06/12/22 11:44 Blood Pressure 90/68 06/12/22 16:48 Pulse Oximetry 97 06/12/22 16:48 Oxygen Delivery Me thod Nasal Cannula 06/12/22 14:05 Oxygen Flow Rate 2 06/12/22 14:05 MDM - Weakness Medical Decision Making Patient are seen today for shortness of breath. Paracentesis ultrasound done earlier showed there was no significant ascites fluid. Chest x-ray today shows no change in pleural effusions which are not amenable to thoracentesis at this time. Given known history of cardiomyopathy with an ejection fraction of 15% suspect cause is congestive heart failure and cardiomyopathy. Did qualify for home O2 at 2 L/min continuously. Medical Records I reviewed the patient's medical records. Lab Data I reviewed the patient's lab results. 06/12/22 12:07 06/12/22 12:07 Radiology Impressions Chest X-Ray 06/12/22 11:45 IMPRESSION: 1. Bilateral pleural effusions are similar to 05/19/2022. 2. Interval clearing of both lungs. Laboratory Results WBC 8.8 10^3/uL (4.0-10.0) 06/12/22 12:07 RBC 5.48 10^6/uL (4.1-5.3) H 06/12/22 12:07 Hgb 14.9 g/dL (11.7-16.6) 06/12/22 12:07 Hct 48.8 % (42.0-52.0) 06/12/22 12:07 MCV 89.1 fl (80-94) 06/12/22 12:07 MCH 27.2 pg (28.0-34.0) L 06/12/22 12:07 MCHC 30.5 g/dL (30.0-36.0) 06/12/22 12:07 RDW 16.2 % (12.1-15.1) H 06/12/22 12:07 Plt Count 306 10^3/cmm (130-400) 06/12/22 12:07 MPV 10.7 fL (7.4-10.4) H 06/12/22 12:07 Neut % (Auto) 77.9 % 06/12/22 12:07 Lymph % (Auto) 13.8 % 06/12/22 12:07 [place] % (Auto) 6.6 % 06/12/22 12:07 Eos % (Auto) 0.5 % 06/12/22 12:07 Baso % (Auto) 0.9 % 06/12/22 12:07 Neut # (Auto) 6.85 10^3/uL (1.8-7.7) 06/12/22 12:07 Lymph # (Auto) 1.2 10^3/uL (0.8-4.8) 06/12/22 12:07 [place] # (Auto) 0.6 10^3/uL (0.2-0.9) 06/12/22 12:07 Eos # (Auto) 0.0 10^3/uL (0.0-0.8) 06/12/22 12:07 Baso # (Auto) 0.1 10^3/uL (0.0-0.1) 06/12/22 12:07 Nucleated RBC % (auto) 0 % 06/12/22 12:07 Nucleated RBCs # 0.0 /100WBC 06/12/22 12:07 Specimen Type Arterial 06/12/22 12:16 Sample Site Radial, left 06/12/22 12:16 ABG pH 7.47 (7.35-7.45) H 06/12/22 12:16 ABG pCO2 41.2 mmHg (35-45) 06/12/22 12:16 ABG pO2 56.4 mmHg (80.0-100.0) L 06/12/22 12:16 ABG HCO3 29.9 mmol/L (22-26) H 06/12/22 12:16 ABG O2 Saturation 87.9 06/12/22 12:16 ABG Base Excess 5.7 mmol/L (-2.0-2.0) H 06/12/22 12:16 Petey Test Pos 06/12/22 12:16 A-a O2 Gradient 5.5 mmHg (5-10) 06/12/22 12:16 Hematocrit 42.7 % (42-52) 06/12/22 12:16 Hgb O2 Saturation 86.1 % (95-100) L 06/12/22 12:16 Carboxyhemoglobin 1.5 %THgb (0.4-20.1) 06/12/22 12:16 Methemoglobin 0.6 % (0.4-1.5) 06/12/22 12:16 Total Hemoglobin 13.9 g/dL (14-18) L 06/12/22 12:16 Sodium 142.0 mmol/L (131-143) 06/12/22 12:16 Potassium 3.6 mmol/L (3.5-5.0) 06/12/22 12:16 Glucose 217.0 mg/dL (70-115) H 06/12/22 12:16 Ionized Calcium 1.2 mmol/L (1.1-1.4) 06/12/22 12:16 O2 Delivery Device None 06/12/22 12:16 FiO2 21.0 % 06/12/22 12:16 [employer] Defence [employer] ID Jovi 06/12/22 12:16 Sodium 140 mmol/L (136-145) 06/12/22 12:07 Potassium 4.5 mmol/L (3.5-5.1) 06/12/22 12:07 Chloride 100 mmol/L (98-107) 06/12/22 12:07 Carbon Dioxide 27 mmol/L (22-29) 06/12/22 12:07 Anion Gap 17.5 (5-19) 06/12/22 12:07 BUN 43 mg/dL (8-23) H 06/12/22 12:07 Creatinine 1.5 mg/dL (0.7-1.2) H 06/12/22 12:07 GFR Calculation 46.7 mL/min (90-130) L 06/12/22 12:07 Glucose 192 mg/dL (65-115) H 06/12/22 12:07 Calculated Osmolality 306 mOsm/kg (285-295) H 06/12/22 12:07 Calcium 9.2 mg/dL (8.5-10.5) 06/12/22 12:07 Total Bilirubin 0.3 mg/dL (0.15-1.2) 06/12/22 12:07 AST 39 U/L (0-40) 06/12/22 12:07 ALT 47 U/L (0-41) H 06/12/22 12:07 Alkaline Phosphatase 155 U/L (40-130) H 06/12/22 12:07 NT-Pro-B Natriuret Pep 16308 pg/mL (0-125) H 06/12/22 12:07 Total Protein 7.0 g/dL (6.6-8.7) 06/12/22 12:07 Albumin 3.6 g/dL (3.5-5.2) 06/12/22 12:07 Globulin 3.4 g/dL (1.3-4.6) 06/12/22 12:07 Discharge Plan Discharge Patient Disposition: Home Clinical Impression: Congestive heart failure, Cardiomyopathy Condition: Stable Prescriptions: No Action cholecalciferol (vitamin D3) [Vitamin D3] 50 mcg (2,000 unit) capsule 50 mcg PO DAILY furosemide 20 mg tablet 10 mg PO DAILY PRN (Reason: Edema) prednisone 5 mg tablet 5 mg PO DAILY calcium carbonate [Calcium 600] 600 mg calcium (1,500 mg) tablet 600 mg PO BID sirolimus [Rapamune] 2 mg tablet 2 mg PO DAILY mupirocin 2 % ointment 1 applic TOPICAL DAILY Qty: 30 1RF diazepam 5 mg tablet 5 mg PO DAILY PRN (Reason: Anxiety) lidocaine 5 % adhesive patch,medicated 1 patch TOPICAL DAILY PRN (Reason: Pain) Rx Instructions: 12 HOURS ON 12 HOURS OFF aspirin [Adult Low Dose Aspirin] 81 mg tablet,delayed release (DR/EC) 81 mg PO .MWF methylsulfonylmethane [MSM] 1,000 mg tablet 1,000 mg PO BID prenat.vits,walter,wty-bwob-lzxva Tablet 1 tab PO DAILY zinc sulfate 50 mg zinc (220 mg) capsule 50 mg PO DAILY (DME) FreeStyle Girish 14 Day Sensor Kit See Rx Instructions .ROUTE .MEDSUPPLY Qty: 2 3RF Rx Instructions: replace every 2 weeks (DME) Replace Liners Qty: 1 0RF Rx Instructions: DX: BKA left (Z89.512), IDDM (E11.9) (DME) prostehetic insert for rt shoe See Rx Instructions .Route .MEDSUPPLY Qty: 1 0RF Rx Instructions: dme- alpha omega (DME) below knee prosthesis See Rx Instructions .Route .MEDSUPPLY Qty: 1 0RF Rx Instructions: As directed albuterol sulfate [ProAir HFA] 90 mcg/actuation HFA aerosol inhaler 2 puff INHALATION Q6H PRN (Reason: shortness of breath or wheezing) Qty: 18 6RF (DME) rollinator See Rx Instructions .Route .MEDSUPPLY Qty: 1 0RF Rx Instructions: As directed insulin lispro [Humalog KwikPen Insulin] 100 unit/mL insulin pen See Rx Instructions .ROUTE .COMPLEX Qty: 15 5RF Dose Instruction: USE DIRECTED ON SLIDING SCALE CHART BY . Rx Instructions: USE DIRECTED ON SLIDING SCALE CHART BY . diclofenac sodium 1 % gel See Rx Instructions .ROUTE .COMPLEX Qty: 100 8RF Dose Instruction: APPLY TWO GRAMS FOUR TIMES DAILY TO SINGLE ELBOW, WRIST OR HAND AND FOR HAND INCLUDES PALM/FINGERS/BACK OF HAND Rx Instructions: APPLY TWO GRAMS FOUR TIMES DAILY TO SINGLE ELBOW, WRIST OR HAND AND FOR HAND INCLUDES PALM/FINGERS/BACK OF HAND tadalafil [Cialis] 20 mg tablet 20 mg PO DAILY PRN (Reason: sexual activity) Qty: 30 0RF Rx Instructions: administer approximately 30min before sexual activity; do not use more than 1 dose per 24hrs tizanidine 4 mg tablet 4 mg PO Q6H PRN (Reason: muscle spasticity) 30 Days Qty: 30 3RF oxycodone 10 mg tablet 10 mg PO TID PRN (Reason: pain) 30 Days Qty: 90 0RF spironolactone 25 mg tablet 12.5 mg PO DAILY Qty: 45 3RF Probiotic 15 billion cell Capsule 1 cap PO DAILY insulin detemir U-100 100 unit/mL (3 mL) insulin pen 11 - 12 unit SUBCUT BID Discharge Orders: Discharge ED (Routine); Ordered 06/12/22 Ordered By: Wallace Hackett Other Ambulatory Orders: DME: Oxygen (Order) Location: None Selected Ordered By: Wallace Hackett Referrals: Atilio Mcgraw MD [Primary Care Provider] - Patient Instructions: Opioid Safety, Pain Management Activity Restrictions/Additional Instructions: Your evaluated today for shortness of breath. On home oxygen testing he required 2 L by nasal cannula continuously. We will make arrangements for home oxygen at the time of discharge today. Recommend that you follow-up with your doctor within the next 2 weeks. To the emergency room for further problems. Coding Level of Care Code ED Behavioral [facility] Rn for Jose Manuel Kuo
[2022-06-12 12:27] LABS: ABG PCO2 41.2 mmHg (35-45); ABG PH Result 7.47 (7.35-7.45); Alveolar-Arterial Oxygen Gradi 5.5 mmHg (5-10); Arterial Blood Gas Hematocrit 42.7 % (42-52); Base Excess ABG 5.7 mmol/L (-2.0-2.0); Blood Gas Allen Test Pos; Blood Gas Operator Identificat WALCI; Blood Gas Sample Site Radial, left; Blood Gas Sample Type Arterial; Carboxyhemoglobin 1.5 %THgb (0.4-20.1); HCO3 ABG 29.9 mmol/L (22-26); HGB O2 Sat 86.1 % (95-100); Ionized Calcium Level - ABG 1.2 mmol/L (1.1-1.4); Methemoglobin 0.6 % (0.4-1.5); Oxygen Saturation ABG 87.9; PO2 ABG 56.4 mmHg (80.0-100.0); Potassium Level - ABG 3.6 mmol/L (3.5-5.0); Total Hemoglobin 13.9 g/dL (14-18)
[2022-06-12 12:33] VITALS: O2SAT 84; O2SAT 89; O2SAT 95
[2022-06-12 12:58] LABS: Basophils # 0.1 10^3/uL (0.0-0.1); Basophils % 0.9 %; Eosinophils % 0.5 %; Hematocrit 48.8 % (42.0-52.0); Hemoglobin 14.9 g/dL (11.7-16.6); Lymphocytes # 1.2 10^3/uL (0.8-4.8); Lymphocytes % 13.8 %; Mean Corpuscular HGB Conc 30.5 g/dL (30.0-36.0); Mean Corpuscular Hemoglobin 27.2 pg (28.0-34.0); Mean Corpuscular Volume 89.1 fl (80-94); Mean Platelet Volume 10.7 fL (7.4-10.4); Monocytes # 0.6 10^3/uL (0.2-0.9); Monocytes % 6.6 %; Neutrophils # 6.85 10^3/uL (1.8-7.7); Neutrophils % 77.9 %; Nucleated Red Blood Cells % 0 %; Platelet Count 306 10^3/cmm (130-400); Red Blood Count 5.48 10^6/uL (4.1-5.3); Red Cell Distribution Width 16.2 % (12.1-15.1); White Blood Count 8.8 10^3/uL (4.0-10.0)
[2022-06-12 13:23] LABS: Alanine Aminotransferase 47 U/L (0-41); Albumin Level 3.6 g/dL (3.5-5.2); Alkaline Phosphatase 155 U/L (40-130); Blood Urea Nitrogen 43 mg/dL (8-23); Calcium 9.2 mg/dL (8.5-10.5); Carbon Dioxide 27 mmol/L (22-29); Chloride 100 mmol/L (98-107); Globulin 3.4 g/dL (1.3-4.6); Glomerular Filtration Rate 46.7 mL/min (90-130); Glucose 192 mg/dL (65-115); NT Pro B Type Natriuretic Pept 21039 pg/mL (0-125); Osmolality Calculated 306 mOsm/kg (285-295); Sodium 140 mmol/L (136-145); Total Bilirubin 0.3 mg/dL (0.15-1.2)
[2022-06-12 13:27] LABS: Anion Gap 17.5 (5-19); Aspartate Amino Transferase 39 U/L (0-40); Potassium 4.5 mmol/L (3.5-5.1)
[2022-06-12 13:30] VITALS: BP 96/71; PULSE 75; O2SAT 98
[2022-06-12 14:05] VITALS: BP 99/74; PULSE 75; O2SAT 98
[2022-06-12 16:48] VITALS: BP 90/68; PULSE 75; O2SAT 97
== END 2022-06-12 16:50 | disposition home or self-care (01) ==
PROVIDERS: Emergency Provider Family Medicine; PCP Internal Medicine
DX: I11.0 Hypertensive heart disease with heart failure (principal); I50.9 Heart failure, unspecified; I42.9 Cardiomyopathy, unspecified; Z79.82 Long term (current) use of aspirin; Z79.4 Long term (current) use of insulin; Z85.72 Personal history of non-Hodgkin lymphomas; E10.9 Type 1 diabetes mellitus without complications; Z94.0 Kidney transplant status; Z94.83 Pancreas transplant status; Z89.519 Acquired absence of unspecified leg below knee
CPT/HCPCS: 36415; 36600; 71045; 80051; 80053; 82330; 82805; 83880; 85025; 93005; 96374; 99285